=== PATIENT | female | born 1985 | race Caucasian/White ===

== ENCOUNTER → 2024-01-20 09:58 | Outpatient (BNVA) | payer OTHER, SELFPAY | PROVIDERS: Visit Provider Physician Assistant Surgical ==

== ENCOUNTER 2024-03-15 13:46 | Outpatient (AMB) | payer OTHER, SELFPAY ==
--- NOTE | 2024-03-15 13:24 | MHC.OFFVISWM ---
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 She heard about our program from the internet. Her goal is to lose weight and achieve a healthy lifestyle as well as to improve, if not resolve, obesity related medical conditions, including hld. She reports first being concerned about her weight over the last 4 years, highest weight to date was 230. Current weight is 221.6 pounds with a BMI of 35.2. She has tried multiple methods of weight loss including fad diets without permanent results. She lives with her and kids. 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 She wakes at:?7am, and goes to bed at?10 pm. Dinner is at 630 pm. Breakfast: premier protein RTD shake and sometime bagel w creamcheese AM snack: skip Lunch: skip or sandwich PM snack: sometimes fruit or toast latte Dinner: tacos or pasta or beef broccoli w rice After dinner: ice cream Other snacks: none Liquids: 24 oz seltzer, 48 oz coke zero daily, no juice, iced coffee w milk 20 oz Alcohol/marijuana/tobacco intake: 1-2 glasses wine 2 nights per week, no cannabis, no tobacco Exercise: none treadmill in home GERD score: 11 KATI score: 4 ESS score: 7 QOL score: 81 PFSH Surgical History No history of previous surgery Family History Mother Lung cancer Father No problems noted. Son No problems noted. Son No problems noted. Social History Alcohol intake: current Alcohol intake frequency: holidays/special occasions only Patient Tobacco Use Status: Never used Tobacco Telehealth Telehealth Telehealth Platform: Telephone Location of provider rendering services: practice address Location of patient: address on file Patient Identification confirmed using: Name, : Yes Telehealth method: voice only Patient verbally consented to treatment: Yes Patient verbally consented to billing insurance company: Yes Patient informed of any privacy concerns related to visit: Yes Minutes spent on Phone/Video with Pt.: 40 Assessment & Plan Assessment & Plan (1) Obesity (BMI 30-39.9): Code(s): E66.9 - Obesity, unspecified Category: Medical Plan: This is a?38 yo female who will start our SWL program to prepare for bariatric surgery.? Blood work, CXR, ECG, Abd US and UGI have been ordered. She is being scheduled for initial consultations. She will start SWL classes and watch the first three videos before her next appointment. 1. You have been given a paper with a link to our software kita ([employer]) to generate an individualized nutritional and exercise plan specific for you. Please send me a screenshot of the plans you will generate Meal to include lean meat (beef, fish, pork, turkey, chicken), or romanian yogurt, or egg whites, or beans with a salad with olive oil and fruits (berries, pears, apples, kiwi). Avoid salt, breads, potatoes, rice, pasta, desserts. 2. If you choose shakes, each shake would be drunk slowly, like coffee over a period of 2 hours. 3. If you choose bars, cut each bar in 4 pieces and eat each piece in 30min to make each bar last 2 hours. 4. I emphasized the importance of measuring accurately the food portion and measure it when serving the food on a plate 5. The meal portions include a specific number of forks of meat (protein) and salad. You always eat the meat portion but you can replace up to half of salad/vegetables portion with rice, potatoes or pasta, or a fruit ?if you like. The less you do it the better weight loss will be. 6. One full-size fork is what it can be scooped on the fork without falling aside and not what can be bit with the fork. Use regular forks like those you find in a typical restaurant. 7.? Please send me weight measurements from your body composition scale as soon as possible and then once a week. Always include your diet and exercise plan. The best time to weigh yourself is first thing in the morning after going to the bathroom. 8. The best choice for exercise would be treadmill at home 9.?Goal is to lose at least 1.5-2lbs per week, and about 10% before surgery, which is about 22 pounds 10. Please follow the diet plan exactly without any change. If you don't like something about the plan or you feel hungry you need to communicate with me so I can help you revise the plan. My cell phone number to communicate with me by text is [phone] Patient is morbidly obese and is not considered stable at this time.?I spent a total of 70 minutes reviewing/updating records, examining the patient and counseling the patient on weight management as detailed above. Orders: Orders Insulin Today E66.9 - Obesity, unspecified, E78.00 - Pure hypercholesterolemia, unspecified Hemoglobin A1c Today E66.9 - Obesity, unspecified, E78.00 - Pure hypercholesterolemia, unspecified Complete Blood Count Auto Diff Today E66.9 - Obesity, unspecified, E78.00 - Pure hypercholesterolemia, unspecified Lipid Panel Today E66.9 - Obesity, unspecified, E78.00 - Pure hypercholesterolemia, unspecified Comprehensive Met. Panel Today E66.9 - Obesity, unspecified, E78.00 - Pure hypercholesterolemia, unspecified Vitamin B12 and Folate Today E66.9 - Obesity, unspecified, E78.00 - Pure hypercholesterolemia, unspecified Zinc Today E66.9 - Obesity, unspecified, E78.00 - Pure hypercholesterolemia, unspecified C Reactive Protein Today E66.9 - Obesity, unspecified, E78.00 - Pure hypercholesterolemia, unspecified Vitamin A Today E66.9 - Obesity, unspecified, E78.00 - Pure hypercholesterolemia, unspecified US abdomen comp w elastography Today E66.9 - Obesity, unspecified, E78.00 - Pure hypercholesterolemia, unspecified FL upper GI w air Today E66.9 - Obesity, unspecified, E78.00 - Pure hypercholesterolemia, unspecified IRON PROFILE Today E66.9 - Obesity, unspecified, E78.00 - Pure hypercholesterolemia, unspecified Vitamin B1 Today E66.9 - Obesity, unspecified, E78.00 - Pure hypercholesterolemia, unspecified TSH reflex Free T4 Today E66.9 - Obesity, unspecified, E78.00 - Pure hypercholesterolemia, unspecified Ferritin Today E66.9 - Obesity, unspecified, E78.00 - Pure hypercholesterolemia, unspecified Vitamin D 25-OH Total Today E66.9 - Obesity, unspecified, E78.00 - Pure hypercholesterolemia, unspecified XR chest 2V Today E66.9 - Obesity, unspecified, E78.00 - Pure hypercholesterolemia, unspecified ECG 12 lead EKG Today E66.9 - Obesity, unspecified, E78.00 - Pure hypercholesterolemia, unspecified Referrals Behavioral Health Referral E66.9 - Obesity, unspecified, E78.00 - Pure hypercholesterolemia, unspecified
== END 2024-03-15 14:06 | disposition home or self-care (01) ==
LOC: HO.HBS 13:46
PROVIDERS: Visit Provider Physician Assistant Surgical
DX: E66.9 Obesity, unspecified (principal)
CPT/HCPCS: 99205

== ENCOUNTER → 2024-03-15 13:46 | Outpatient (BNVA) | payer OTHER, SELFPAY | PROVIDERS: Visit Provider Physician Assistant Surgical ==

== ENCOUNTER 2024-03-24 08:53 | Outpatient (REF) | payer OTHER, SELFPAY ==
--- NOTE | ~2024-03-24 | XR_ITS ---
EXAMINATION: XR CHEST CLINICAL INFORMATION: Obesity unspecified. COMPARISON: None available. TECHNIQUE: 2 views of the chest were obtained. FINDINGS: Dextroscoliosis of the thoracic spine with mild multilevel degenerative changes. Heart size is normal. No pleural effusion. There is no gross pneumothorax. No focal consolidation. XR/XR chest 2V IMPRESSION: No evidence of pneumonia.
--- NOTE | 2024-03-24 09:00 | ECG_ITS ---
Test Reason : cp Blood Pressure : / mmHG Vent. Rate : 079 BPM Atrial Rate : 079 BPM P-R Int : 154 ms QRS Dur : 092 ms QT Int : 388 ms P-R-T Axes : 068 -07 059 degrees QTc Int : 444 ms Normal sinus rhythm Normal ECG No previous ECGs available Referred By: Shawn Vega Electronically Signed By:Steve Jones
[2024-03-24 09:29] LABS: MANUAL DIFF FLAG NO
[2024-03-24 10:03] LABS: Basophils Absolute Auto 0.1 X10*3/uL (0.0-0.2); Basophils Percent Auto 0.7 % (0-2); Eosinophils Absolute Auto 0.1 X10*3/uL (0.0-0.4); Hematocrit 44.2 % (37.0-47.0); Hemoglobin 14.7 g/dl (12.0-16.0); Imm Gran Abs Auto 0.03 X10*3/uL (0.00-0.03); Imm Gran Pct Auto 0.4 % (0.0-0.4); Lymphocytes Absolute Auto 2.4 X10*3/uL (1.2-4.9); Lymphocytes Percent Auto 33.3 % (20-40); Mean Corpuscular HGB Conc 33.3 g/dl (31.0-35.0); Mean Corpuscular Hemoglobin 27.8 pg (27.0-33.0); Mean Corpuscular Volume 83.7 fL (80.0-98.0); Mean Platelet Volume 10.6 fL (9.4-12.3); Monocytes Absolute Auto 0.6 X10*3/uL (0.1-1.2); Monocytes Percent Auto 7.8 % (2-11); Neutrophils Percent Auto 55.8 % (45-73); Platelet Count 282 X10*3/uL (160-400); Red Blood Count 5.28 X10*6/uL (4.20-5.50); Red Cell Distribution Width 13.4 % (11.0-16.0); White Blood Count 7.1 X10*3/uL (4.8-10.8)
[2024-03-24 10:52] LABS: Estimated Average Glucose 100 mg/dL; Hemoglobin A1c % 5.1 % (<6.0)
[2024-03-24 10:55] LABS: Alanine Aminotransferase 64 U/L (0-31); Albumin Level 4.5 g/dL (3.5-5.0); Alkaline Phosphatase 68 U/L (39-117); Anion Gap 11 (12-20); Aspartate Amino Transferase 41 U/L (5-31); Bilirubin Total 0.5 mg/dL (0.0-1.0); Blood Urea Nitrogen 17 mg/dL (9-16); C Reactive Protein 0.46 mg/dL (< or = 0.50); Calcium 10.1 mg/dL (8.4-10.2); Carbon Dioxide 23 mmol/L (22-29); Chloride 108 mmol/L (96-108); Cholesterol 201 mg/dL (<200); Estimated Glomerular Filt Rate > 60; Glucose Random 78 mg/dL (60-115); HDL Cholesterol 46 mg/dL (>40); Iron 82 mcg/dL (30-160); LDL Cholesterol Calculated 129 mg/dL (<100); Percent Iron Saturation 27 % (15-50); Potassium 4.1 mmol/L (3.3-5.1); Sodium 138 mmol/L (135-145); Total Iron Binding Capacity 301 mcg/dL (228-428); Total Protein 7.9 g/dL (6.5-8.0); Triglycerides 132 mg/dL (<150); Unsaturated Iron Binding 219 ug/dL
[2024-03-24 10:59] LABS: Ferritin 159 ng/mL (10-250); Insulin 12 uU/mL (2-29); TSH reflex Free T4 7.78 uIU/mL (0.32-4.0); Vitamin D 25-OH Total 24.5 ng/mL (>30)
[2024-03-24 11:35] LABS: Folate 13.4 ng/mL (> or = 4.0); Vitamin B12 724 pg/mL (200-900)
[2024-03-24 12:11] LABS: Free T4 (Free Thyroxine) 1.13 ng/dL (0.71-1.85)
[2024-03-28 00:09] LABS: Zinc 86 mcg/dL (60-130)
[2024-03-29 22:13] LABS: Vitamin A 44 mcg/dL (38-98)
[2024-03-31 13:28] LABS: Vitamin B1 13 nmol/L (8-30)
== END 2024-03-24 08:54 | disposition home or self-care (01) ==
LOC: HO.XRAY 08:53
PROVIDERS: PCP Family Medicine; Visit Provider Physician Assistant Surgical
DX: E66.9 Obesity, unspecified (principal); E78.00 Pure hypercholesterolemia, unspecified; Z13.1 Encounter for screening for diabetes mellitus
CPT/HCPCS: 36415; 71046; 80053; 80061; 82306; 82607; 82728; 82746; 83036; 83525; 83540; 84425; 84439; 84443; 84590; 84630; 85025; 86140; 93005

== ENCOUNTER → 2024-03-24 09:00 | Outpatient (BNV) | payer OTHER, SELFPAY | PROVIDERS: PCP Family Medicine; Visit Provider Internal Medicine Cardiovascular Disease | DX: R07.9 Chest pain, unspecified (principal) | CPT/HCPCS: 93010 ==

== ENCOUNTER 2024-04-05 09:03 | Outpatient (REF) | payer OTHER, SELFPAY ==
--- NOTE | ~2024-04-05 | US_ITS ---
EXAMINATION: US COMPLETE ABDOMEN WITH LIVER ELASTOGRAPHY CLINICAL INFORMATION: Obesity. COMPARISON: None available. TECHNIQUE: Real-time imaging of the abdominal viscera. Noninvasive ultrasound liver fibrosis assessment is performed using Nicolas ElastPQ point quantification shear wave elastography (pSWE) with a C5-2 MHz transducer. Multiple elastography samples are obtained. FINDINGS: PANCREAS: Normal. The visualized pancreatic head and body are normal in appearance. The remainder of the pancreas is obscured from visualization by the overlying bowel gas. ABDOMINAL AORTA: The proximal, middle, and distal aortic segments are normal in caliber. INFERIOR VENA CAVA: Visualized portions are normal. LIVER: The liver demonstrates normal size, contour and increased echogenicity. No focal lesion or intrahepatic biliary duct dilatation. The right lobe measures 15.2 cm in length. The left lobe measures 7.7 cm in length. Portal flow is towards the liver (hepatopetal). Shear wave liver elastography median stiffness is 1.27 m/s (reference: normal median stiffness is 1.3 m/s or less). IQR/median stiffness to assess sampling precision is 0.04 (reference: good quality data set is IQR/median stiffness of 0.15 or less). GALLBLADDER: Normal. The gallbladder is physiologically distended without evidence of stones, sludge, polyps, wall thickening or pericholecystic fluid. COMMON BILE DUCT: Normal in caliber measuring 0.5 cm in diameter. RIGHT KIDNEY: There is pelviectasis, without noy hydronephrosis. No renal calculi or focal parenchymal lesions. The kidney measures 11.9 cm in maximum dimension. LEFT KIDNEY: Normal. No hydronephrosis. No renal calculi or focal parenchymal lesions. The kidney measures 11.8 cm in maximum dimension. SPLEEN: Normal. The spleen measures 11.6 cm in maximum dimension. FREE FLUID: None. US/US abdomen comp w elastography IMPRESSION: 1. There is generalized increase in hepatic echotexture, consistent with fatty infiltration or hepatocellular disease. Please correlate clinically. No focal hepatic mass or intrahepatic biliary dilatation is seen. 2. Liver elastography: Measurements are consistent with a high probability of normal liver stiffness. REFERENCE: Society of Radiologists in Ultrasound Liver Stiffness Thresholds (2020): LIVER STIFFNESS THRESHOLDS: *Liver Stiffness equal or less than 1.3 m/s: High probability of being normal. *Liver Stiffness less than 1.7 m/s: In the absence of other known clinical signs, rules out compensated advanced chronic liver disease. *Liver Stiffness 1.7-2.1 m/s: Suggestive of compensated advanced chronic liver disease but need further test for confirmation. *Liver Stiffness over 2.1 m/s: Rules in compensated advanced chronic liver disease. *Liver Stiffness over 2.4 m/s: Suggestive of clinically significant portal hypertension. QUALITY OF DATA SET: *IQR/Median value equal or less than 0.15 implies a quality data set. *IQR/Median value over 0.15 implies a poor quality data set. SIGNIFICANT CHANGE FROM PRIOR EXAM: Significant change if liver stiffness measurement is 10% or greater from prior exam. OTHER CONSIDERATIONS: The stage of liver fibrosis may be overestimated in the setting of acute hepatitis, liver inflammation, elevated liver function tests, hepatic vascular congestion, obstructive cholestasis, non-fasting state, and infiltrative diseases such as amyloidosis and lymphoma. In some patients with NAFLD, the liver stiffness thresholds for compensated advanced chronic liver disease may be lower. In causes other than viral hepatitis and NAFLD, liver stiffness thresholds are not well established. Electronically signed by: Constantin Corona MD 04/26/2024 08:01 PM EDT
== END 2024-04-05 09:04 | disposition home or self-care (01) ==
LOC: HO.US 09:03
PROVIDERS: Visit Provider Physician Assistant Surgical
DX: E66.9 Obesity, unspecified (principal); E78.00 Pure hypercholesterolemia, unspecified
CPT/HCPCS: 76700; 76981

== ENCOUNTER 2024-04-17 14:01 | Outpatient (AMB) | payer OTHER, SELFPAY ==
--- NOTE | 2024-04-17 09:10 | MHC.OFFVISWM ---
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 She was initially seen in the Surgical weight loss program on 03/15/2024 with a weight of 221.6 lb and a BMI of 35.2. Weight today is 208.8 lb with a BMI of 33.1. This corresponds to a weight loss of 12.8 lb or 5.7% total body weight loss. She is following the meal plan well Meal plan: Premier protein rtd 1/2 at 9-11, 1/2 at 11-1, Perdue protein bar 1/2 bar 3-4 (20 gm protein in whole bar) dinner 7 forks protein and 7 forks veg 1/2 bar 9 pm Drinking 60-80 oz water Exercise plan: home treadmill 3 days per week, 150-200 fahad yoga, 1 day per week 150 fahad, PFSH Surgical History No history of previous surgery Family History Mother Lung cancer Father No problems noted. Son No problems noted. Son No problems noted. Social History Alcohol intake: current Alcohol intake frequency: holidays/special occasions only Patient Tobacco Use Status: Never used Tobacco Physical Exam Vital Signs: BMI result Body Mass Index 33.1 Telehealth Telehealth Telehealth Platform: Telephone Location of provider rendering services: practice address Location of patient: address on file Patient Identification confirmed using: Name, : Yes Telehealth method: voice only Patient verbally consented to treatment: Yes Patient verbally consented to billing insurance company: Yes Patient informed of any privacy concerns related to visit: Yes Minutes spent on Phone/Video with Pt.: 15 Assessment & Plan Assessment & Plan (1) Obesity (BMI 30-39.9): Code(s): E66.9 - Obesity, unspecified Category: Medical Plan: Patient is doing well. She has lost 12.8 lb or 5.7% total body weight loss in the month since she initiated the program. She is engaged in the [employer] kita and following the meal plan. We discussed strategy to improve her exercise plan including consistency. She does have a treadmill at home and I have suggested that she wake up at 06:00 so she may use the treadmill for 45 minutes to an hour with a goal of burning approximately 300 calories daily. She then we will have finished her exercise and time to wake up her children for school at approximately 07:30. In the meantime, we will transfer her to Dr. Coombs for continued preoperative care. She has been encouraged to continue to send weight is weekly and text with any questions or concerns.
[2024-04-17 09:11] VITALS: BMI 33.1
== END 2024-04-17 14:02 | disposition home or self-care (01) ==
LOC: HO.HBS 14:02
PROVIDERS: PCP Family Medicine; Visit Provider Physician Assistant Surgical
DX: E66.9 Obesity, unspecified (principal)
CPT/HCPCS: 99213

== ENCOUNTER → 2024-04-17 14:01 | Outpatient (BNVA) | payer OTHER, SELFPAY | PROVIDERS: PCP Family Medicine; Visit Provider Physician Assistant Surgical | DX: E66.9 Obesity, unspecified (principal) ==

== ENCOUNTER 2024-04-26 09:11 | Outpatient (AMB) | payer OTHER, SELFPAY ==
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
== END 2024-04-26 10:10 | disposition home or self-care (01) ==
LOC: HO.HBST 09:11
PROVIDERS: PCP Family Medicine; Visit Provider Counselor Mental Health
DX: F33.9 Major depressive disorder, recurrent, unspecified (principal)
CPT/HCPCS: 90791

== ENCOUNTER → 2024-04-26 09:11 | Outpatient (BNVA) | payer OTHER, SELFPAY | PROVIDERS: PCP Family Medicine; Visit Provider Counselor Mental Health ==

== ENCOUNTER 2024-05-02 10:02 | Day surgery (SDC) | payer OTHER, SELFPAY ==
[2024-05-02 10:57] VITALS: BMI 31.7
[2024-05-02 11:04] VITALS: BMI 31.7
[2024-05-02 11:04] LABS: UPreg QC Valid YES; Urine Pregnancy NEGATIVE (NEGATIVE)
[2024-05-02 11:06] VITALS: BP 112/72; PULSE 73; RESP 16; TEMP 36.7; O2SAT 95
--- NOTE | 2024-05-02 11:10 | PM.OP ---
Brief Operative Note Date of Service: 05/02/24 Pre-op diagnosis: GERD Post-op diagnosis: same Procedure: PROCEDURE DATE: 05/02/2024 PREOPERATIVE DIAGNOSIS: GERD POSTOPERATIVE DIAGNOSIS: ?Same as above. 1) small hiatal hernia, 2) esophagitis, 3) distal gastritis PROCEDURE: Ouyfyzjm-brtjhk-adevmahshvaw with biopsies Surgeon: ?Derek Coombs M.D.. Ph.D. Cloth Cutting Machine Operator: None ? Anesthesia: IV sedation Estimated blood loss: ?Minimal FINDINGS AND PROCEDURE: ? OPERATIVE INDICATIONS: ?The patient is a 39 year old female known to me who is interested in bariatric surgery. The patient has severe GERD. Based on this information I recommended an upper endoscopy to evaluate the patient's symptoms. Risks and complications of the surgery were discussed with the patient in advance particularly the possibility of perforation or bleeding that may require surgical intervention. The patient understood the risks and was in agreement with the plan. ? PROCEDURE: After informed consent was obtained by the patient, the patient was ?transferred to the Operating Room and was placed in the supine position.? After successful induction of IV sedation, a mouth block was inserted and the patient was placed in the left lateral decubitus position. An upper endoscopy was performed next, the oropharynx and esophagus appeared within the normal limits. There was a small 2cm hiatal hernia. The z-line was irregular with tongues of gastric mucosa protruding into the esophagus. Two biopsies were obtained from the distal esophagus 2-3 cm proximal to the GE junction and two additional biopsies from the GE junction. The stomach was entered and it appeared to be of normal size. There was mild gastritis at the antrum. There was no stricture or ulcer. A biopsy was obtained from the gastric fundus and the antrum. No significant bleeding was noted from any of the biopsy sites. Retroflexion of the scope confirmed the presence of the small diaphragmatic hernia. The scope was then advanced into the duodenum which appeared to be normal as well. At that point the duodenum ?and the stomach were decompressed and the scope was withdrawn from the patient's mouth. The patient extubated and was transferred in stable condition to the Recovery Room for further care. I was present and performed all steps of the procedure. There were no residents to assist with this case. Derek Coombs M.D., Ph.D. Surgeon: Abelardo Coombs MD Anesthesia: MAC Was an Cloth Cutting Machine Operator used for this Procedure?: No Estimated blood loss (mL): 0 IV fluids (mL): 400 Urine output (mL): 0 (No Kwon to record output) Pathology: other (1) antrum x1, 2) fundus x1, 3) GE junction x2, 4) distal esophagus x2) Condition: stable Disposition: PACU
--- NOTE | 2024-05-02 11:11 | MHC.SHP ---
Pre-Procedural Eval Section A - 24 Hr Update-Section A only Date of Service: 05/02/24 The patient is an INPATIENT: No The patient has been examined within 24 hours of the surgical procedure. The History & Physical has been completed within 30 days and I have reviewed it.: Yes Section B - Complete if H&P > 30 days Chief Complaint: Morbid (severe) obesity due to excess calories Details of Present Illness: GERD Relevant Family History (Specify if Yes): No Relevant Social History: None Present Medications: None Medical History: No relevant PMH History of Previous Operations: No relevant previous surgery Allergies: Allergies Allergy/AdvReac Type Severity Reaction Status Date / Time No Known Allergies Allergy Verified 01/20/24 10:29 Review of Systems Sugical H&P ROS: Negative: Constitution, Cardiovascular, Respiratory, Neurological, Psychiatric, Hem-Onc, Allergic/Immunologic, Gastrointestinal, Genitourinary, Musculoskeletal, Integumentary, Endocrine and Eyes/Ears/Nose/Throat Exam Surgical H&P Exam: Normal: HEENT, Normal: Heart, Normal: Lungs, Normal: Extremities, Normal: Abdomen, Normal: Skin and Normal: Neurological Plan Diagnosis/Plan: Unchanged (EGD to assess etiology of GERD. Risks of bleeding and perforation were discussed with the patient and she is in agreement with the plan.) I have reviewed the history and physical and performed a pertinent physical examination on my patient. No changes have occurred unless specified. Time Spent With Patient Time: Total time managing care of this patient today ____ minutes.
--- NOTE | 2024-05-02 11:15 | P.CONAN_ITS ---
Documented by User: Edelmira Lyn NP 04/28/24 14:19 HPI - Anesthesia Eval Consult details Narrative: 38yo F for Upper Endoscopy [facility] Active Problems Active Problems: All Active Problems Hypothyroid (Acute) Hypercholesterolemia (Acute) Obesity (BMI 30-39.9) (Acute) Past Medical History Medical History (Updated 05/02/24 @ 11:01 by Lily Spencer RN) Tuberculosis Hypothyroid Asthma Family History Family History Mother Lung cancer Father No problems noted. Son No problems noted. Son No problems noted. Surgical History Surgical History (Updated 05/02/24 @ 11:01 by Lily Spencer RN) H/O wisdom tooth extraction No history of previous surgery Social History Social History Alcohol intake: current Alcohol intake frequency: holidays/special occasions only Patient Tobacco Use Status: Never used Tobacco Use of substances other than those prescribed or required for medical reasons: No Are you DNR?: No Advance Directives: No Advance Directives Information Provided: Yes Advance Directives on File: No Meds Allergies Allergy/AdvReac Type Severity Reaction Status Date / Time No Known Allergies Allergy Verified 01/20/24 10:29 Home Medications ?Medication ?Instructions ?Recorded ?Confirmed ?Last Taken ?Type levothyroxine 200 mcg capsule 200 mcg PO DAILY 01/20/24 04/17/24 05/02/24 History probiotic PO 01/20/24 04/17/24 Unknown History sertraline 100 mg tablet (Zoloft) 100 mg PO DAILY 01/20/24 04/17/24 Unknown History Assessment and Plan Assessment Anesthesia Assessment: Chart Reviewed Documented by User: Radha Iniguez DO 05/02/24 11:23 [facility] Past Medical History Medical History (Updated 05/02/24 @ 11:01 by Lily Spencer RN) Tuberculosis Hypothyroid Asthma Family History Family History Mother Lung cancer Father No problems noted. Son No problems noted. Son No problems noted. Family history of problems with anesthesia: No Surgical History Surgical History (Updated 05/02/24 @ 11:01 by Lily Spencer RN) H/O wisdom tooth extraction No history of previous surgery History of Problems with Anesthesia: No Social History Social History Alcohol intake: current Alcohol intake frequency: holidays/special occasions only Patient Tobacco Use Status: Never used Tobacco Use of substances other than those prescribed or required for medical reasons: No Are you DNR?: No Advance Directives: No Advance Directives Information Provided: Yes Advance Directives on File: No Meds Allergies Allergy/AdvReac Type Severity Reaction Status Date / Time No Known Allergies Allergy Verified 01/20/24 10:29 Home Medications ?Medication ?Instructions ?Recorded ?Confirmed ?Last Taken ?Type levothyroxine 200 mcg capsule 200 mcg PO DAILY 01/20/24 04/17/24 05/02/24 History probiotic PO 01/20/24 04/17/24 Unknown History sertraline 100 mg tablet (Zoloft) 100 mg PO DAILY 01/20/24 04/17/24 Unknown History Exam Exam Date and Time: 05/02/24 1115 Height,Weight and Vital Signs: Height 5 ft 7 in Weight 91.796 kg Vital Signs Temperature 98.1 F 05/02/24 11:06 Pulse Rate 73 05/02/24 11:06 Respiratory Rate 16 05/02/24 11:06 Blood Pressure 112/72 05/02/24 11:06 Pulse Oximetry 95 05/02/24 11:06 Oxygen Delivery Method Room Air 05/02/24 11:06 Temperature 98.1 F 05/02/24 11:06 Pulse Rate 73 05/02/24 11:06 Respiratory Rate 16 05/02/24 11:06 Blood Pressure 112/72 05/02/24 11:06 Pulse Oximetry 95 05/02/24 11:06 Oxygen Delivery Method Room Air 05/02/24 11:06 Airway Mallampati Class: II TM Dist: >3cm Neck ROM: Full Loose/Missing/Broken Teeth: No (patient denies any loose or broken teeth) Heart: S1S2 Lungs: CTAB Assessment and Plan Assessment Anesthesia Assessment: Anesthesia Plan Discussed and Chart Reviewed Final Anesthetic Review Family History of Problems with Anesthesia: No History of Problems with Anesthesia: No NPO: Yes ASA Class: II Final Preanesthetic Review: No Changes in Pt Med Stat, Meds/Allgs Chart Reviewed, Consent Obtained/Reviewed and Anes Risks/Benef Reviewed Patient Risk: Low Procedure Risk: Low Anesthetic Plan Anesthetic Plan: MAC: and Agree w/ Assess. and Plan Disposition: Standard PACU
[2024-05-02] MEDS: Lactated Ringers 1,000 ML 80 ML IVCONT (11:23)
[2024-05-02 12:18] VITALS: BP 102/60; PULSE 93; RESP 16; TEMP 36.7; O2SAT 94
[2024-05-02 12:37] VITALS: BP 101/76; PULSE 85; RESP 17; TEMP 36.7; O2SAT 96
== END 2024-05-02 13:03 | disposition home or self-care (01) ==
PROVIDERS: Nurse Practitioner; PCP Family Medicine; Visit Provider Surgery
PROC: 0DJ08ZZ Inspection of Upper Intestinal Tract, Via Natural or Artificial Opening Endoscopic (ICD-10-PCS; CPT 43235; principal; 2024-05-02 12:10)
DX: K21.9 Gastro-esophageal reflux disease without esophagitis (principal); E66.01 Morbid (severe) obesity due to excess calories; Z68.35 Body mass index [BMI] 35.0-35.9, adult; K29.50 Unspecified chronic gastritis without bleeding; K20.80 Other esophagitis without bleeding; K22.89 Other specified disease of esophagus; K44.9 Diaphragmatic hernia without obstruction or gangrene; E78.00 Pure hypercholesterolemia, unspecified
CPT/HCPCS: 43239; 81025; 88305; 88313; 88342; J1100; J1596; J2250; J2704

== ENCOUNTER → 2024-05-02 10:02 | Outpatient (BNV) | payer OTHER, SELFPAY | PROVIDERS: PCP Family Medicine; Visit Provider Surgery | DX: K44.9 Diaphragmatic hernia without obstruction or gangrene (principal) | CPT/HCPCS: 43239 ==

== ENCOUNTER → 2024-05-10 08:11 | Outpatient (BNVA) | payer OTHER, SELFPAY | PROVIDERS: PCP Family Medicine; Visit Provider Counselor Mental Health ==

== ENCOUNTER → 2024-05-10 08:11 | Outpatient (AMB) | payer OTHER, SELFPAY ==
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
== END ==
LOC: HO.HBST 08:12
PROVIDERS: PCP Family Medicine; Visit Provider Counselor Mental Health
DX: F33.9 Major depressive disorder, recurrent, unspecified (principal)
CPT/HCPCS: 90837

== ENCOUNTER 2024-05-10 13:59 | Outpatient (AMB) | payer OTHER, SELFPAY ==
[2024-05-10 14:01] VITALS: BP 112/86; PULSE 96; BMI 31.7
--- NOTE | 2024-05-10 14:01 | MHC.OFFVIS ---
Vital Signs 05/10/24 14:01 Height 5 ft 7 in Weight 202 lb 9.677 oz BMI 31.7 BP 112/86 Blood Pressure Location Lt brachial Position Sitting Pulse 96 Pulse Source Pulse Oximeter Intake Visit Reasons: Hypothyroidism-confirmed Intake Note: Patient presents today for Hypothyroidism office visit. Party Plan Sales Agent Required: No Accompanied by: Self / Same As Patient Allergies No Known Allergies Allergy (Verified 01/20/24 10:29) Medication List - Last Reconciled 05/10/24 by Fatuma Velazco MD cholecalciferol (vitamin D3) 125 mcg PO DAILY 90 days levothyroxine 200 mcg PO DAILY [probiotic PO] sertraline (Zoloft) 100 mg PO DAILY HPI Comments Details: 39-year-old female coming in today for initial evaluation of hypothyroidism. Congenital hypothyroidism diagnosed when she was born. PCP has been managing it. She thought to establish care with us due to some recent fluctuations in blood work and planning to get gastric sleeve surgery in sometime around July 2024. Most recent blood work from March 2024 showed TSH of 7.78 which is elevated and free T4 normal at 1.13. Aicha on levothyroxine 200 mcg Wednesday to Wednesday, now takes it 7 30 AM , then breakfast at 9 AM, but has become particular about this end of February. Prior to that she also thinks she missed some doses. 2-3 times a week maybe missed the pill. Patient currently denies heat or cold intolerance, diarrhea or constipation, hair loss, palpitation, anxiety, weight changes, mood changes, low energy, changes in appearance of eyes or vision changes, tremors, increased diaphoresis or dry skin. ? Patient denies any difficulty swallowing, pain on swallowing or voice changes or difficulty breathing. Patient denies any history of childhood neck radiation. Denies having ever used lithium, amiodarone or biotin supplements. Patient denies any family history of thyroid cancer or thyroid disease. 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 Pulmonary: No SOB GI:No abdominal pain, no nausea or vomiting, no anorexia, no blood in stool : no burning micturition, dysuria or increase in urinary frequency Physical exam General: sitting comfortably in no acute distress HEENT: normocephalic/atraumatic, moist oral mucosa Neck: supple, symmetrical , no dorsocervical or supraclavicular fat pads Cardiac: normal heart sounds Pulm: normal breath sounds B/L, no added breath sounds Abd: not distended, no tenderness Extremities: no edema, no signs of myxedema PFSH Medical History (Updated 05/10/24 @ 14:29 by Fatuma Velazco MD) Tuberculosis Hypothyroid Asthma Surgical History (Updated 05/02/24 @ 11:01 by Lily Spencer RN) H/O wisdom tooth extraction No history of previous surgery Family History Mother Lung cancer Father No problems noted. Son No problems noted. Son No problems noted. Social History Alcohol intake: current Alcohol intake frequency: holidays/special occasions only Patient Tobacco Use Status: Never used Tobacco Physical Exam Vital Signs: Last Vital Signs Pulse 96 05/10/24 14:01 BP 112/86 05/10/24 14:01 BMI result Body Mass Index 31.7 Results Reviewed Results Reviewed: Laboratory Tests 03/24/24 09:26 25-OH Vitamin D Total 24.5 L TSH 7.78 H Free T4 1.13 Assessment & Plan Assessment & Plan (1) Hypothyroid: Code(s): E03.9 - Hypothyroidism, unspecified Category: Medical Qualifiers: Hypothyroidism type: congenital without goiter Qualified Code(s): E03.1 - Congenital hypothyroidism without goiter Plan: Patient with history of congenital hypothyroidism who has been on levothyroxine 200 mcg daily for many years. Most recently blood work was done in March 2024 when TSH was noted to be elevated at 7.7, with free T4 normal at 1.13. She does endorse missing some doses a few times a week prior to March as well as times taking it with food. She has been more particular about her regimen since beginning of March. She currently does not have any symptoms of hypothyroidism or hyperthyroidism. She has been working with weight management program planning for gastric sleeve surgery in July 2024. I explained to the patient that as she continues to lose weight she might actually experience she we need a decreased dose, and once she gets her procedure, there might be some absorption issues possibly requiring increased dose. At this time since her elevated TSH is explained by her missing some doses and not taking it appropriately, we will continue her on the same dose now that she is taking it appropriately. We will plan to repeat her labs in another 4 weeks. Plan: -continue levothyroxine 200 mcg daily -ordered TSH, free T4 to be done in 4 weeks -follow up in 3 months -counseled her about symptoms of hypothyroidism and hyperthyroidism and to contact our office if those happen for getting labs done sooner Plan I spent 45 minutes in reviewing the record, seeing the patient and documenting in the medical record. Orders: Orders Thyroid Stimulating Hormone 4 Weeks E03.9 - Hypothyroidism, unspecified Free T4 (Free Thyroxine) 4 Weeks E03.9 - Hypothyroidism, unspecified Patient Instructions: Labs in 4 weeks Continue taking levothyroxine 200 mcg daily first thing in the monring, empty stomach, wait an hour before eating or drinking coffee Do not take with other medications Follow up in 3 months Coding Level of Care Code New Pt Level 4 (92136) Diagnoses Congenital hypothyroidism without goiter E03.1 Hypothyroidism type: congenital without goiter Time Spent (min) 45
== END 2024-05-10 14:28 | disposition home or self-care (01) ==
PROVIDERS: PCP Family Medicine; Visit Provider Student in an Organized Health Care Education/Training Program
DX: E03.1 Congenital hypothyroidism without goiter (principal)
CPT/HCPCS: 99204

== ENCOUNTER 2024-05-15 08:06 | Outpatient (AMB) | payer OTHER, SELFPAY ==
--- NOTE | 2024-05-15 10:33 | A.OFFVIS_ITS ---
VS Expanded 05/15/24 10:52 Height 5 ft 7 in Weight 199 lb 1 oz BMI 31.2 Body Fat % 38.2 Body Fat Mass 76 Fat Free Mass 123 Visceral Fat Rating 10 Body Water % 45.2 Body Water Mass 89.9 Basal Metabolic Rate/Score 1,575 Intake Visit Reasons: TV Consult / Transfer Shawn Allergies No Known Allergies Allergy (Verified 05/15/24 10:33) Medication List - Last Reconciled 05/15/24 by Abelardo Coombs MD albuterol sulfate 90 mcg/actuation 2 puffs inhalation Q6H PRN cholecalciferol (vitamin D3) 125 mcg PO DAILY 90 days levothyroxine 200 mcg PO DAILY [probiotic PO] sertraline (Zoloft) 100 mg PO DAILY HPI HPI TV Consult / Transfer Shawn: Details: Start time: 10.15am, End time: 11am ?I spent 40 minutes speaking with the patient on the phone plus an additional 5 minutes reviewing and updating records for a total of 45 minutes HPI Comments Details: Overall weight loss: 22.5lbs, or 10.15% TBWL Is using the [employer] kita with excellent results: Is doing 2 half bottles of premade Premier shake, one Pure protein bar splin in half and a meal (7 forks of protein and 7 forks of salad or vegetables) Exercise: treadmill for 285 fahad daily (speed 3mph and incline 0-6) PFSH Medical History (Updated 05/15/24 @ 10:36 by Abelardo Coombs MD) Anxiety Depression Tuberculosis Hypothyroid Asthma Surgical History H/O wisdom tooth extraction No history of previous surgery Family History Mother Lung cancer Father No problems noted. Son No problems noted. Son No problems noted. Social History Alcohol intake: current Alcohol intake frequency: holidays/special occasions only Patient Tobacco Use Status: Never used Tobacco Telehealth Telehealth Telehealth Platform: Telephone Location of provider rendering services: practice address Location of patient: address on file Patient Identification confirmed using: Name, : Yes Telehealth method: voice only Patient verbally consented to treatment: Yes Patient verbally consented to billing insurance company: Yes Patient informed of any privacy concerns related to visit: Yes Minutes spent on Phone/Video with Pt.: 45 Assessment & Plan Assessment & Plan (1) Obesity (BMI 30-39.9): Code(s): E66.9 - Obesity, unspecified Category: Medical Plan: 1. Plan for lap sleeve gastrectomy including upper GI endoscopy. All tests has been completed and reviewed and the patient is cleared for the surgery. ?If diaphragmatic or ventral hernias are present at time of surgery, these will be repaired laparoscopically as well. Risks and complications were discussed in detail including possible conversion to an open procedure, anastomotic leak, bleeding requiring transfusion, small bowel obstruction, , DVT and pulmonary embolism, cardiac, or pulmonary complications, as detention complications such as anastomotic ulcer, insufficient weight loss and vitamin deficiencies. I emphasized the importance of close follow-up, adherence to instructions and good communication. So far she has proven to be an excellent communicator and very compliant with all our directions accomplishing a great weight loss. I believe that she is an excellent candidate and she is ready. 2. The patient participated in a structured preoperative lifestyle intervention program supervised by a physician the 2 months preceding the surgical procedure. The lifestyle intervention included a structured nutritional plan with a specific daily protein intake goal, an exercise plan with a 2000 calorie burn weekly goal, weekly behavior modification guidance and completion of eight 1- hour online nutritional classes and passing successfully the corresponding quizzes. Adherence to preoperative care plan was demonstrated by completing an extensive preoperative work-up. Program participation was demonstrated by completing 4 visits with our medical team and by sharing weekly weight measurements weekly for 2 consecutive months via an approved body composition scale. Compliance to the lifestyle intervention was demonstrated by achieving a 22.5lbs weight-loss or 10.15% total body weight loss (TBWL). No medications were used to achieve this weight loss. In our published experience an over 7% preoperative TBWL, achieved by meeting the diet and exercise goals of our program improves surgical outcomes, reduces the potential for surgical complications, and predicts a statistically significant higher weight loss up to 6 years postoperatively. 3. Continue present kita's plan of 2 half bottles of premade Premier shake, one Pure protein bar splin in half and a meal (7 forks of protein and 7 forks of salad or vegetables) 4. Exercise: continue treadmill for 285 fahad daily (speed 3mph and incline 0-6). Consider increasing the incline periodically 5. Send me weight measurements weekly on Sundays
[2024-05-15 10:52] VITALS: BMI 31.2
== END 2024-05-15 11:00 | disposition home or self-care (01) ==
LOC: HO.HBS 08:06
PROVIDERS: PCP Family Medicine; Visit Provider Surgery
DX: E66.9 Obesity, unspecified (principal); Z68.31 Body mass index [BMI] 31.0-31.9, adult
CPT/HCPCS: 99215

== ENCOUNTER → 2024-05-15 08:06 | Outpatient (BNVA) | payer OTHER, SELFPAY | PROVIDERS: PCP Family Medicine; Visit Provider Surgery ==

== ENCOUNTER 2024-05-25 08:27 | Outpatient (REF) | payer OTHER, SELFPAY ==
--- NOTE | ~2024-05-25 | FL_ITS ---
EXAMINATION: XR FLUOROSCOPY UPPER GI WITH AIR CLINICAL INFORMATION: Obesity, unspecified. Patient also complaining of mild reflux symptoms, chronic. History of small hiatus hernia. COMPARISON: None relevant. TECHNIQUE: Fluoroscopic air contrast upper GI examination was performed utilizing standard techniques with thin and thick barium and effervescent granules. Numerous spot images were obtained. Several fluoroscopic image hold cine sequences were also obtained. FINDINGS: Lateral cine images of the oropharynx and hypopharynx demonstrate normal swallow mechanism with normal epiglottic inversion and soft palate elevation. No tracheal penetration, glottic or subglottic aspiration identified. No nasopharyngeal reflux present. Hypopharyngeal structures appear normal without evidence of mass or diverticulum. There was no significant cricopharyngeal achalasia. Dual and single contrast images of the esophagus demonstrate normal caliber and contour. Subtle granular pattern of the distal one third of the esophagus mucosa, suggestive of reflux esophagitis. No evidence of stricture, mass, or gross ulcerations identified. Esophageal peristalsis was normal. There is a small type I hiatus hernia. There is a wide open Schatzki's ring at the GE junction. No functional obstruction. There was prominent gastroesophageal reflux noted during the exam to the level of the thoracic inlet. Dual contrast and single contrast images of the stomach demonstrated normal contour and mucosal pattern without evidence of mass, ulceration, or other abnormality. Contrast freely passed into the gastric antrum and duodenal bulb without delay. Single and air-contrast images of the duodenal bulb demonstrate no abnormality. The duodenal sweep has a normal appearance, course, and mucosal fold appearance. The imaged proximal jejunum has a normal fold pattern and caliber. FLUOROSCOPY TIME: 3 minutes, 44 seconds Number of Spot Images: 11 Number of cines obtained: 15 DOSE AREA PRODUCT: 3613 uGy-m2 (microgray-meter squared) FL/FL upper GI w air IMPRESSION: 1. Small type I hiatus hernia . 2. Granular pattern of the distal esophageal mucosa, subtle, consistent with mild reflux esophagitis. 3. Wide open Schatzki's ring at the GE junction with no functional obstruction. 4. Gastroesophageal reflux noted to the level of the thoracic inlet. 5. Normal-appearing stomach, duodenal bulb, duodenum, and proximal small bowel. Electronically signed by: Pelon Robertson MD 05/25/2024 10:57 AM EDT
== END 2024-05-25 08:28 | disposition home or self-care (01) ==
LOC: HO.XRAY 08:27
PROVIDERS: PCP Family Medicine; Visit Provider Physician Assistant Surgical
DX: E66.9 Obesity, unspecified (principal); E78.00 Pure hypercholesterolemia, unspecified
CPT/HCPCS: 74246

== ENCOUNTER → 2024-05-25 08:28 | Outpatient (BNV) | payer OTHER, SELFPAY | PROVIDERS: PCP Family Medicine; Visit Provider Radiology Diagnostic Radiology | DX: K21.9 Gastro-esophageal reflux disease without esophagitis (principal); E66.9 Obesity, unspecified | CPT/HCPCS: 74246 ==

== ENCOUNTER 2024-06-07 09:13 | Outpatient (REF) | payer OTHER, SELFPAY ==
[2024-06-07 10:41] LABS: Free T4 (Free Thyroxine) 1.55 ng/dL (0.71-1.85)
== END 2024-06-07 09:14 | disposition home or self-care (01) ==
LOC: HO.LAB 09:13
PROVIDERS: Visit Provider Student in an Organized Health Care Education/Training Program
DX: E03.9 Hypothyroidism, unspecified (principal)
CPT/HCPCS: 36415; 84439; 84443

== ENCOUNTER → 2024-06-15 07:59 | Outpatient (REF) | payer OTHER, SELFPAY | LOC: HO.SL 07:59 | PROVIDERS: PCP Family Medicine; Visit Provider Physician Assistant Surgical | DX: R06.83 Snoring (principal) | CPT/HCPCS: 95806 ==

== ENCOUNTER → 2024-06-15 08:43 | Outpatient (BNV) | payer OTHER, SELFPAY | PROVIDERS: PCP Family Medicine; Visit Provider Internal Medicine | DX: R06.83 Snoring (principal) | CPT/HCPCS: 95806 ==

== ENCOUNTER 2024-06-19 07:57 | Outpatient (AMB) | payer OTHER, SELFPAY ==
--- NOTE | 2024-06-19 11:51 | A.OFFVIS_ITS ---
VS Expanded 06/19/24 11:59 Height 5 ft 7 in Weight 192 lb 2 oz BMI 30.1 Body Fat % 37.4 Body Fat Mass 71.8 Fat Free Mass 120.3 Visceral Fat Rating 10 Body Water % 45.8 Body Water Mass 88 Basal Metabolic Rate/Score 1,549 Intake Visit Reasons: TV Pre Op LSG 07/11/24 *SEE COMMENT* Allergies No Known Allergies Allergy (Verified 06/19/24 11:52) Medication List - Last Reconciled 06/19/24 by Abelardo Coombs MD albuterol sulfate 90 mcg/actuation 2 puffs inhalation Q6H PRN cholecalciferol (vitamin D3) 125 mcg PO DAILY 90 days levothyroxine 200 mcg PO DAILY ondansetron 4 mg PO Q12H pantoprazole 40 mg PO DAILY polyethylene glycol 3350 17 grams PO DAILY [probiotic PO] sertraline (Zoloft) 100 mg PO DAILY sucralfate 10 mL PO BID HPI HPI TV Pre Op LSG 07/11/24 *SEE COMMENT*: Details: Start time: 11.47am, End time: 12.07pm ?I spent 15 minutes speaking with the patient on the phone plus an additional 5 minutes reviewing and updating records for a total of 20 minutes HPI Comments Details: Overall weight loss: 29.4 lbs, or 13.3% TBWL using the [employer] kita Is doing 2 1/2 bottle Premier protein shakes (mixed with 4oz almond milk), 1 [employer] protein bar and one meal (7 forks of protein and 7 forks of salad or vegetables) Exercise: doing treadmill for 280cal daily PFSH Medical History (Updated 06/19/24 @ 12:02 by Abelardo Coombs MD) Obesity Anxiety Depression Tuberculosis Hypothyroid Asthma Surgical History H/O wisdom tooth extraction No history of previous surgery Family History Mother Lung cancer Father No problems noted. Son No problems noted. Son No problems noted. Social History Alcohol intake: current Alcohol intake frequency: holidays/special occasions only Patient Tobacco Use Status: Never used Tobacco Telehealth Telehealth Telehealth Platform: Telephone Location of provider rendering services: practice address Location of patient: address on file Patient Identification confirmed using: Name, : Yes Telehealth method: voice only Patient verbally consented to treatment: Yes Patient verbally consented to billing insurance company: Yes Patient informed of any privacy concerns related to visit: Yes Minutes spent on Phone/Video with Pt.: 20 Assessment & Plan Assessment & Plan (1) Obesity: Code(s): E66.9 - Obesity, unspecified Category: Medical Qualifiers: Obesity type: due to excess calories Obesity classification: adult class 1 (BMI 30 - 34.9) Serious obesity comorbidity presence: with serious comorbidity Body mass index: BMI 30.0-30.9 Qualified Code(s): E66.811 - Obesity, class 1; E66.09 - Other obesity due to excess calories; Z68.30 - Body mass index [BMI] 30.0-30.9, adult Plan: 1. Plan for lap sleeve gastrectomy including upper GI endoscopy. All tests has been completed and reviewed and the patient is cleared for the surgery. ?If diaphragmatic or ventral hernias are present at time of surgery, these will be repaired laparoscopically as well. Risks and complications were discussed in detail including possible conversion to an open procedure, anastomotic leak, bleeding requiring transfusion, small bowel obstruction, , DVT and pulmonary embolism, cardiac, or pulmonary complications, as small engine technician complications such as anastomotic ulcer, insufficient weight loss and vitamin deficiencies. I emphasized the importance of close follow-up, adherence to instructions and good communication. So far she has proven to be an excellent communicator and very compliant with all our directions accomplishing a great weight loss. I believe that she is an excellent candidate and she is ready. 2. Preop prescriptions were provided and explained the purpose of each one. Need to be purchased preop. Start Pantoprazole now as you get it from the pharmacy, 1 pill per day. Sucralfate and Zofran are for after surgery as needed. 3. Bowel prep: please do 7 packets ?of Miralax mixing each one with a an 8oz glass of water, crystal light, gatorade zero, or propel ?on 07/09/24 and the same amount on 07/10/24. The Miralax you begin with one packet at a time in 8oz water or crystal light, gatorade zero, or propel ?as early in the day as you can and you do them back to back until you finish them. Continue the protein shakes during ?the bowel prep. 4. Needs to purchase 1oz medicine cups . 5. Needs to purchase Children's liquid Tylenol for postop pain control. 6. Avoid aspirin, motrin, Advil, Aleve, Ibuprofen, Naproxyn. Tylenol is OK. 7. She needs to purchase the Celebrate 4:1 protein shakes or the Celebrate mult ivitamins from the hospital's gift shop. 8. Will do basic preop blood work-up any day between Wednesday07/03/24 and Wednesday07/07/24 fasting for 12 hours and is scheduled to see the Anesthesiologist prior to the day of surgery. 9. Importance of adherence to postop folllow-up and recommendations was underscored and she understands that. 10. Stop food and bars as of Wednesday07/02/24 and continue with 5 premade PREMIER protein shakes (HALF bottle mixed in 4oz almond milk) at 8am-10am, 11am-1pm, 2pm-4pm, 5pm-7pm and at 8pm-10pm 11. No soups, broths or V8 12. The patient's?medical?history has been reviewed and they are considered low risk for post op DVT and therefore DVT prophylaxis is not considered necessary. Travel after surgery was reviewed. The patient has not disclosed any travel [place] during the first 30 days after surgery and they have been advised that within the first 30 days after surgery any bus, plane, train or car travel over 2 hours in duration is contraindicated due to the possibility of developing blood clots from immobility. Any travel, needs to include periods of ambulation of 10 minutes in duration every 2 hours.? Patient was instructed to discuss any plans for travel during this period with their bariatric surgeon.? 13. Please take at the day of surgery the following medications: NONE 14. Stop any control pills and don't use them for one month after surgery 15. Absolutely no smoking or vaping, or marijuana until the surgery and for at least the first 4 weeks. Only nicotine patches are allowed. 16. Send me weight measurements on Wednesday06/24/24, 07/01/24, 07/08/24 and then on Wednesday07/11/24, the day of surgery before you go to the hospital. 17. Avoid any steroids by mouth for any reason. Let me know if someone prescribes them to you 18. These instructions supersede anything else you read in the handbook, anything you watched in videos or classes or you were told by any other provider. If there is any conflict, you follow the above instructions and nothing else. Orders: Orders Prothrombin Time INR Today E03.1 - Congenital hypothyroidism without goiter, E66.9 - Obesity, unspecified, E78.00 - Pure hypercholesterolemia, unspecified Partial Thromboplastin Time Today E03.1 - Congenital hypothyroidism without goiter, E66.9 - Obesity, unspecified, E78.00 - Pure hypercholesterolemia, unspecified C Reactive Protein Today E03.1 - Congenital hypothyroidism without goiter, E66.9 - Obesity, unspecified, E78.00 - Pure hypercholesterolemia, unspecified Hemoglobin A1c Today E03.1 - Congenital hypothyroidism without goiter, E66.9 - Obesity, unspecified, E78.00 - Pure hypercholesterolemia, unspecified Complete Blood Count Auto Diff Today E03.1 - Congenital hypothyroidism without goiter, E66.9 - Obesity, unspecified, E78.00 - Pure hypercholesterolemia, unspecified Insulin Today E03.1 - Congenital hypothyroidism without goiter, E66.9 - Obesity, unspecified, E78.00 - Pure hypercholesterolemia, unspecified Comprehensive Met. Panel Today E03.1 - Congenital hypothyroidism without goiter, E66.9 - Obesity, unspecified, E78.00 - Pure hypercholesterolemia, unspecified TSH reflex Free T4 Today E03.1 - Congenital hypothyroidism without goiter, E66.9 - Obesity, unspecified, E78.00 - Pure hypercholesterolemia, unspecified Type and Screen Today E03.1 - Congenital hypothyroidism without goiter, E66.9 - Obesity, unspecified, E78.00 - Pure hypercholesterolemia, unspecified Lipid Panel Today E03.1 - Congenital hypothyroidism without goiter, E66.9 - Obesity, unspecified, E78.00 - Pure hypercholesterolemia, unspecified Medications: New ondansetron Only take one every 12 hours as needed if you have nausea 4 mg PO Q12H 20 tabs 0RF nausea and vomiting R11.0 - Nausea polyethylene glycol 3350 Mix each measuring cup with 8oz of water, Crystal light, or Gatorade zero, or Propel and do 7 measuring cups on 07/09/24 and another 7 measuring cups on 17 grams PO DAILY 238 grams 0RF Z01.818 - Encounter for other preprocedural examination
[2024-06-19 11:59] VITALS: BMI 30.1
== END 2024-06-19 12:08 | disposition home or self-care (01) ==
PROVIDERS: PCP Family Medicine; Visit Provider Surgery
DX: E66.811 Obesity, class 1 (principal); E66.09 Other obesity due to excess calories; Z68.30 Body mass index [BMI] 30.0-30.9, adult
CPT/HCPCS: 99213

== ENCOUNTER → 2024-06-19 07:57 | Outpatient (BNVA) | payer OTHER, SELFPAY | PROVIDERS: PCP Family Medicine; Visit Provider Surgery ==

== ENCOUNTER 2024-07-12 06:02 | Day surgery (SDC) | payer OTHER, SELFPAY ==
[2024-07-04 09:40] LABS: Basophils Percent Auto 0.3 % (0-2); Eosinophils Absolute Auto 0.1 X10*3/uL (0.0-0.4); Eosinophils Percent Auto 2.2 % (0-4); Hematocrit 41.8 % (37.0-47.0); Hemoglobin 13.8 g/dl (12.0-16.0); Imm Gran Abs Auto 0.01 X10*3/uL (0.00-0.03); Imm Gran Pct Auto 0.2 % (0.0-0.4); Lymphocytes Absolute Auto 2.1 X10*3/uL (1.2-4.9); Lymphocytes Percent Auto 34.7 % (20-40); MANUAL DIFF FLAG NO; Mean Corpuscular Hemoglobin 27.4 pg (27.0-33.0); Mean Corpuscular Volume 82.9 fL (80.0-98.0); Mean Platelet Volume 10.6 fL (9.4-12.3); Monocytes Absolute Auto 0.4 X10*3/uL (0.1-1.2); Monocytes Percent Auto 5.9 % (2-11); Neutrophils Absolute Auto 3.4 x10*3/uL (2.0-8.3); Neutrophils Percent Auto 56.7 % (45-73); Platelet Count 265 X10*3/uL (160-400); Red Blood Count 5.04 X10*6/uL (4.20-5.50); Red Cell Distribution Width 13.8 % (11.0-16.0); White Blood Count 5.9 X10*3/uL (4.8-10.8)
[2024-07-04 09:45] LABS: Prothrombin Time 12.2 SEC (10.9-12.4)
[2024-07-04 09:47] LABS: Partial Thromboplastin Time 29.9 SEC (26.0-36.8)
[2024-07-04 10:28] LABS: Estimated Average Glucose 97 mg/dL; Total Hemoglobin (HGBA1C) 3678.1721 umol/L
[2024-07-04 10:30] LABS: Alanine Aminotransferase 67 U/L (0-31); Alkaline Phosphatase 70 U/L (39-117); Anion Gap 11 (12-20); Aspartate Amino Transferase 48 U/L (5-31); Bilirubin Total 0.6 mg/dL (0.0-1.0); Blood Urea Nitrogen 14 mg/dL (9-16); C Reactive Protein 0.61 mg/dL (< or = 0.50); Calcium 9.4 mg/dL (8.4-10.2); Carbon Dioxide 22 mmol/L (22-29); Chloride 109 mmol/L (96-108); Cholesterol 160 mg/dL (<200); Estimated Glomerular Filt Rate > 60; Glucose Random 85 mg/dL (60-115); HDL Cholesterol 38 mg/dL (>40); LDL Cholesterol Calculated 105 mg/dL (<100); Potassium 4.1 mmol/L (3.3-5.1); Sodium 138 mmol/L (135-145); Total Protein 7.1 g/dL (6.5-8.0); Triglycerides 85 mg/dL (<150)
[2024-07-04 10:45] VITALS: BMI 29.6
[2024-07-04 10:53] LABS: TSH reflex Free T4 0.59 uIU/mL (0.32-4.0)
[2024-07-04 11:14] LABS: Insulin 7 uU/mL (2-29)
--- NOTE | 2024-07-11 09:08 | HO.ANESPROP2 ---
Documented by User: Edelmira Lyn NP 07/11/24 09:09 HPI - Anesthesia Eval Consult details Narrative: 39yo F for Gastrectomy Sleeve- EGD,, possible diaphragmatic hernia, possible ventral hernia, possible open PMFSH Active Problems Active Problems: All Active Problems Esophagitis determined by biopsy (Acute) BMI 31.0-31.9,adult (Acute) Snoring (Acute) Hypothyroid (Acute) Hypercholesterolemia (Acute) Obesity (BMI 30-39.9) (Acute) Obesity (Acute) Anxiety (Acute) Depression (Acute) Asthma (Acute) Past Medical History Medical History Fatty liver Obesity Anxiety Depression Tuberculosis (~2007) Hypothyroid Asthma Family History Family History Mother Lung cancer Father No problems noted. Son No problems noted. Son No problems noted. Family history of problems with anesthesia: No Surgical History Surgical History History of esophagogastroduodenoscopy (EGD) (05/02/24) H/O wisdom tooth extraction History of Problems with Anesthesia: No Social History Social History Household Members: Family Housing: House Alcohol intake: current Alcohol intake frequency: holidays/special occasions only Patient Tobacco Use Status: Never used Tobacco e-Cigarette/Vaping Use: Never Used Use of substances other than those prescribed or required for medical reasons: No Have you been hit, kicked, punched, or otherwise hurt by someone within the past year? If so, by whom?: No Are you DNR?: No Advance Directives: No Advance Directives Information Provided: Yes Advance Directives on File: No Recently lost weight without trying: No Nutrition Risks: No Nutritional Risk Patient : No FDLMP: 06/24/2024 : No Poor oral hygiene: No Meds Allergies Allergy/AdvReac Type Severity Reaction Status Date / Time No Known Allergies Allergy Verified 07/12/24 07:40 Home Medications ?Medication ?Instructions ?Recorded ?Confirmed ?Last Taken ?Type levothyroxine 200 mcg capsule 200 mcg PO DAILY 01/20/24 07/12/24 07/11/24 History sertraline 100 mg tablet (Zoloft) 100 mg PO DAILY 01/20/24 07/12/24 07/11/24 History albuterol sulfate 90 mcg/actuation 2 puff inhalation Q6H PRN 05/15/24 07/04/24 Unknown History aerosol inhaler Shortness Of Breath Or Wheezing Exam Height,Weight and Vital Signs: Height 5 ft 7 in Weight 85.729 kg Pertinent Lab Results Pertinent Lab Results: Laboratory Tests 07/04/24 07/04/24 07/04/24 09:12 09:27 Unknown WBC 5.9 RBC 5.04 Hgb 13.8 Hct 41.8 MCV 82.9 MCH 27.4 MCHC 33.0 RDW 13.8 Plt Count 265 MPV 10.6 Immature Gran % (Auto) 0.2 Neut % (Auto) 56.7 Lymph % (Auto) 34.7 Griggs % (Auto) 5.9 Eos % (Auto) 2.2 Baso % (Auto) 0.3 Lymph # (Auto) 2.1 [place]gs # (Auto) 0.4 Eos # (Auto) 0.1 Baso # (Auto) 0.0 Abs Immat Gran (auto) 0.01 Absolute Neuts (auto) 3.4 Absolute Nucleated RBC 0.000 Nucleated RBC % (auto) 0.0 PT 12.2 INR 1.0 APTT 29.9 Sodium 138 Potassium 4.1 Chloride 109 H Carbon Dioxide 22 Anion Gap 11 L BUN 14 Creatinine 0.70 Estim Creat Clear Calc TNP Estimated GFR > 60 Random Glucose 85 Estimat Average Glucose 97 Hemoglobin A1c % 5.0 Insulin Level 7 Calcium 9.4 D Total Bilirubin 0.6 AST 48 H ALT 67 H Alkaline Phosphatase 70 C-Reactive Protein 0.61 H Total Protein 7.1 Albumin 4.0 Triglycerides 85 Cholesterol 160 LDL Cholesterol, Calc 105 H HDL Cholesterol 38 L TSH 0.59 Blood Type A Positive Antibody Screen NEGATIVE Narrative Narrative: EKG 03/2024 Vent. Rate : 079 BPM Atrial Rate : 079 BPM P-R Int : 154 ms QRS Dur : 092 ms QT Int : 388 ms P-R-T Axes : 068 -07 059 degrees QTc Int : 444 ms Normal sinus rhythm Normal ECG No previous ECGs available Assessment and Plan Assessment Anesthesia Assessment: Chart Reviewed Final Anesthetic Review Family History of Problems with Anesthesia: No History of Problems with Anesthesia: No Documented by User: Polina Hendricks MD 07/12/24 08:42 HPI - Anesthesia Eval Consult details Narrative: 39yo F for EGD, Laparoscopic Sleeve Gastrectomy, possible diaphragmatic hernia repair, possible ventral hernia repair, possible open PMFSH Active Problems Active Problems: All Active Problems Esophagitis determined by biopsy (Acute) Snoring (Acute) Hypothyroid (Acute) Hypercholesterolemia (Acute) Obesity (Acute) Anxiety (Acute) Depression (Acute) Asthma (Acute)- rarely needs inhaler Past Medical History Medical History Fatty liver Obesity Anxiety Depression Tuberculosis (~2007) Hypothyroid Asthma Family History Family History Mother Lung cancer Father No problems noted. Son No problems noted. Son No problems noted. Family history of problems with anesthesia: No Surgical History Surgical History History of esophagogastroduodenoscopy (EGD) (05/02/24) H/O wisdom tooth extraction History of Problems with Anesthesia: No Social History Social History Household Members: Family Housing: House Alcohol intake: current Alcohol intake frequency: holidays/special occasions only Patient Tobacco Use Status: Never used Tobacco e-Cigarette/Vaping Use: Never Used Use of substances other than those prescribed or required for medical reasons: No Have you been hit, kicked, punched, or otherwise hurt by someone within the past year? If so, by whom?: No Are you DNR?: No Advance Directives: No Advance Directives Information Provided: Yes Advance Directives on File: No Recently lost weight without trying: No Nutrition Risks: No Nutritional Risk Patient : No FDLMP: 06/24/2024 : No Poor oral hygiene: No Meds Allergies Allergy/AdvReac Type Severity Reaction Status Date / Time No Known Allergies Allergy Verified 07/12/24 07:40 Home Medications ?Medication ?Instructions ?Recorded ?Confirmed ?Last Taken ?Type levothyroxine 200 mcg capsule 200 mcg PO DAILY 01/20/24 07/12/24 07/11/24 History sertraline 100 mg tablet (Zoloft) 100 mg PO DAILY 01/20/24 07/12/24 07/11/24 History albuterol sulfate 90 mcg/actuation 2 puff inhalation Q6H PRN 05/15/24 07/04/24 Unknown History aerosol inhaler Shortness Of Breath Or Wheezing Exam Height,Weight and Vital Signs: Height 5 ft 7 in Weight 85.729 kg Vital Signs Temp Pulse Resp BP Pulse Ox O2 Del Method 07/12/24 06:37 97.0 F 87 16 109/70 94 Room Air Pertinent Lab Results Pertinent Lab Results: Laboratory Tests 07/04/24 07/04/24 07/04/24 09:12 09:27 Unknown WBC 5.9 RBC 5.04 Hgb 13.8 Hct 41.8 MCV 82.9 MCH 27.4 MCHC 33.0 RDW 13.8 Plt Count 265 MPV 10.6 Immature Gran % (Auto) 0.2 Neut % (Auto) 56.7 Lymph % (Auto) 34.7 [place] % (Auto) 5.9 Eos % (Auto) 2.2 Baso % (Auto) 0.3 Lymph # (Auto) 2.1 [place] # (Auto) 0.4 Eos # (Auto) 0.1 Baso # (Auto) 0.0 Abs Immat Gran (auto) 0.01 Absolute Neuts (auto) 3.4 Absolute Nucleated RBC 0.000 Nucleated RBC % (auto) 0.0 PT 12.2 INR 1.0 APTT 29.9 Sodium 138 Potassium 4.1 Chloride 109 H Carbon Dioxide 22 Anion Gap 11 L BUN 14 Creatinine 0.70 Estim Creat Clear Calc TNP Estimated GFR > 60 Random Glucose 85 Estimat Average Glucose 97 Hemoglobin A1c % 5.0 Insulin Level 7 Calcium 9.4 D Total Bilirubin 0.6 AST 48 H ALT 67 H Alkaline Phosphatase 70 C-Reactive Protein 0.61 H Total Protein 7.1 Albumin 4.0 Triglycerides 85 Cholesterol 160 LDL Cholesterol, Calc 105 H HDL Cholesterol 38 L TSH 0.59 Blood Type A Positive Antibody Screen NEGATIVE Laboratory Results - last 24 hr 07/12/24 06:15 Urine Test NEGATIVE Airway Mallampati Class: III TM Dist: >3cm Neck ROM: Full Loose/Missing/Broken Teeth: Yes ([place] teeth extracted. Denies broken or loose teeth ) Heart: RRR Lungs: CTAB Assessment and Plan Assessment Anesthesia Assessment: Anesthesia Plan Discussed and Chart Reviewed Final Anesthetic Review Family History of Problems with Anesthesia: No History of Problems with Anesthesia: No NPO: Yes ASA Class: II Final Preanesthetic Review: No Changes in Pt Med Stat, Meds/Allgs Chart Reviewed, Consent Obtained/Reviewed and Anes Risks/Benef Reviewed Patient Risk: Intermediate Procedure Risk: Intermediate Assessment/Block/Sedation in SS: Assess/Block/Sedation- Anesthetic Plan Anesthetic Plan: GA Disposition: Standard PACU
[2024-07-12] VITALS (14 sets, daily range): BP systolic 107–123; BP diastolic 62–79; PULSE 75–94; RESP 12–20; TEMP 36.1–37.1; O2SAT 93–98
[2024-07-12 06:26] LABS: UPreg QC Valid YES; Urine Pregnancy NEGATIVE (NEGATIVE)
[2024-07-12] MEDS: Lactated Ringers 1,000 ML 999 ML IV (06:31)
[2024-07-12] MEDS: Lactated Ringers 1,000 ML 100 ML IVCONT ×3 (06:31→22:15)
[2024-07-12] MEDS: Aprepitant 32 MG/4.4 ML VIAL IVPUSH (06:35)
--- NOTE | 2024-07-12 07:35 | MHC.SHP ---
Pre-Procedural Eval Section A - 24 Hr Update-Section A only Date of Service: 07/12/24 The patient is an INPATIENT: No The patient has been examined within 24 hours of the surgical procedure. The History & Physical has been completed within 30 days and I have reviewed it.: Yes Section B - Complete if H&P > 30 days Chief Complaint: Obesity Relevant Family History (Specify if Yes): No Relevant Social History: None Present Medications: None Medical History: No relevant PMH History of Previous Operations: No relevant previous surgery Allergies: Allergies Allergy/AdvReac Type Severity Reaction Status Date / Time No Known Allergies Allergy Verified 07/04/24 10:39 Review of Systems Sugical H&P ROS: Negative: Constitution, Cardiovascular, Respiratory, Neurological, Psychiatric, Hem-Onc, Allergic/Immunologic, Gastrointestinal, Genitourinary, Musculoskeletal, Integumentary, Endocrine and Eyes/Ears/Nose/Throat Exam Surgical H&P Exam: Normal: HEENT, Normal: Heart, Normal: Lungs, Normal: Extremities, Normal: Abdomen, Normal: Skin and Normal: Neurological Plan Diagnosis/Plan: Unchanged I have reviewed the history and physical and performed a pertinent physical examination on my patient. No changes have occurred unless specified. Time Spent With Patient Time: Total time managing care of this patient today ____ minutes.
--- NOTE | 2024-07-12 07:36 | PM.OP ---
Brief Operative Note Date of Service: 07/12/24 Pre-op diagnosis: Severe obesity with comorbidities (see below) Post-op diagnosis: same (& diaphragmatic hernia & congenital adhesions) Procedure: INITIAL PATIENT BMI ON PRESENTATION AT OUR OFFICE: 35.2 kg/m2 LAST BMI BEFORE SURGERY: 29.3 kg/m2 COMORBIDITIES: hypothyroidism, depression, anxiety, hyperlipidemia, GERD, liver steatosis ?The patient presented to the Weight Management Program with significant obesity that was negatively impacting the patient's comorbidities as listed above.? The program is a phased program with a special focus on preoperative medical weight management to promote substantial weight loss and prepare the patients for the second phase of the program: bariatric surgery. The patient participated in an intensive weekly lifestyle ?intervention and exercise program during which the patient ?has lost between the initial office visit and the last preoperative visit 35.1 lbs, or 15.8% of initial actual body weight. It was deemed appropriate for the patient to now have bariatric surgery. In light of the current Covid-19 pandemic and the well documented strong association of obesity and increased risk of worse outcomes if infected with Covid-19 (REFERENCES:https://pubmed.ncbi.nlm.nih.gov/47725922/,?https://pubmed.ncbi.nlm.nih.gov/83280752/), any delay in undergoing bariatric surgery may lead to the patient's worsening health condition and increased?risk of more severe Covid-19 disease if infected. In addition a recent?study from [facility] published in [facility] on 08/18/2021 ([email or web address]) found that, among patients with obesity, substantial weight loss achieved with surgery was associated with improved outcomes of COVID-19 infection. The findings suggest that obesity can be a modifiable risk factor for the severity of COVID-19 infection. In addition, the patient met the BMI-criteria for bariatric surgery based on the BMI on initial presentation. The patient should not be penalized for achieving such weight loss because ?it is not sustainable long-term without surgical intervention and it was achieved in preparation for bariatric surgery ?under my direction and based on my published research ([email or web address]).[email or web address] and?https://www.soard.org/article/[email or web address](88)30930-X/pdf) ?that a 10% preoperative weight loss improves long-term weight loss after surgery and reduces perioperative complications.? Insurance carriers such as [employer] [place] have endorsed my recommendations ?and have included in their policies criteria to include a 10% preoperative weight loss requirement. PROCEDURE: Esophago-gastroscopy, laparoscopic repair of incarcerated diaphragmatic hernia, laparoscopic lysis of adhesions, laparoscopic sleeve gastrectomy and laparoscopic gastropexy INDICATIONS: This is a 39 year-old female who was electively scheduled for laparoscopic, possibly open sleeve gastrectomy. The risks and complications of the procedure were discussed with the patient in advance, particularly the possibility of ; pulmonary embolism; staple line leak; bleeding; GERD; cardiac, pulmonary, or renal complications; as well as long-term problems such as insufficient weight loss, vitamin deficiency, strictures, or ulcers. The patient understood all the risks, and was in agreement to proceed with surgery. DESCRIPTION OF PROCEDURE: After informed consent was obtained from the patient, the patient was given preoperative antibiotics, and was transferred to the operating room. After successful induction of general anesthesia, pneumatic compression devices were placed on both lower extremities. An upper endoscopy was performed next. The oropharynx and esophagus appeared to be within normal limits. There was a diaphragmatic hernia present of moderate size consistent with the findings of the preoperative upper GI. The stomach was entered. Then after all fluid and air were suctioned and the stomach was fully decompressed, the scope was withdrawn and secured in the mid esophagus. The patient was then prepped and draped in the usual sterile manner, and abdominal access was established at the right upper quadrant with the Kurtis technique. A 12 mm blunt port was inserted, and the abdomen was insufflated with CO2 to a pressure of 15 mmHg. Under direct visualization, additional ports were placed, specifically two 5 mm Versi-step ports to the left upper quadrant, and a 5 mm Versi-Step port to the right upper quadrant. 1% lidocaine plain was used to infiltrate all port sites as well as all fascia defects. Following that, the patient was placed in a steep reverse Trendelenburg position. An additional 5 mm port was placed to the right flank for the Mediflex retractor that was used to retract the left lobe of the liver. The gastro-esophageal fat pad was opened with the ultrasonic device (Thunderbeat, Olympus) and the anterior esophagus and hiatus were exposed. The angle of His was opened with the ultrasonic device the fundus of the stomach from any diaphragmatic and splenic attachments. I then opened the gastrocolic ligament between the transverse colon and the greater curvature of the stomach with the ultrasonic device to enter the lesser sac and facilitate the ligation of the short gastric vessels. I started at a mid-point along the greater curvature and using the Thunderbeat, all short gastric vessels were divided all the way to the angle of His until the left danitza was completely dissected at its entirety. I then divided the gastro-colic ligament distally to a distance of about 3-4 cm proximal to the pylorus. There were extensive congenital adhesions between the pancreas and posterior gastric wall. Those were lysed completely with the ultrasonic device. Adhesiolysis took approximately 45 min to complete. There was an obvious significant-sized hiatal hernia. I continued dissecting along the hiatus toward the left danitza and the angle of His. I fully mobilized the fat pad that was incarcerated in the hernia. I then continued by dissecting even further into the posterior retro-esophageal space all the way to the angle of His. I continued to mobilize the esophagus into the mediastinum circumferentially. Both vagal nerves were seen and preserved. At that point, I was able to have at least 3 to 5 cm of esophagus into the abdomen.? After I completely mobilized the esophagus from both the left and right danitza and I had a good mobilization of the esophagus circumferentially, I closed the hernia defect with three interrupted #0 Surgidac sutures using the Endo Stitch device, two of which was placed posterior and one of which anterior to the esophagus. ? The stomach was then divided transversely with three Endo NIK-45 purple and three NIK-6s0 articulating purple loads using the ThrowMotionIA stapler and loads. Every effort was made that the gastric sleeve had a tubular shape and an even caliber throughout. Once the sleeve resection was completed, the staple line of the gastric sleeve was reinforced with Hemoclips. The resected stomach was retrieved without difficulty from the Kurtis port. A gastropexy was then performed in order to prevent postoperative GERD and partial gastric volvulus. Several interrupted 2.0 Surgidac sutures were placed between the sleeve's staple line and the previously divided greater omentum and gastro-colic ligament using the Endo-Stitch device. ?An upper endoscopy was performed. There was no narrowing at the GE junction. The scope was easily advanced all the way to the pylorus which was clearly visualized. There was no narrowing anywhere and the sleeve's caliber was even throughout. The sleeve's staple line was inspected and there was no evidence of ischemia, bleeding or dehiscence. At that point the gastroscope was withdrawn from the patient?s mouth while we were decompressing the bowel and the stomach from any remaining air. I looked into the lesser sac to see how the sleeve was situating and it was situating well. There was no bleeding from the staple line, spleen, or short gastric vessels. The Mediflex retractor was removed, and the undersurface of the liver was inspected and there was no bleeding. The patient was placed in supine position. I closed the fascial defect of the 12 mm port site with a figure of eight #1 Polysorb suture. Then 100 cc 0.25 % Marcaine plain with 10 mg of Dexamethasone were used to infiltrate the fascial closure as well as all skin incisions. At this point, the abdomen was deflated, all ports were removed under direct vision, and no bleeding was noted from any of the port sites. The skin incisions were irrigated with saline and were closed with 4-0 absorbable monofilament sutures. Steri-Strips and OpSites were used to cover all incisions. The patient was extubated and was transferred in stable condition to the recovery room for further care. I was present and performed all vazquez parts of the procedure. Elenita Vega was the business development assistant. There were no residents to assist with this case. Derek Coombs MD, PhD, FACS Surgeon: Abelardo Coombs MD Anesthesia: GETA, local and other (TAP block) Was an Customer Experience Retail Clerk used for this Procedure?: No Customer Experience Retail Clerk: Shawn Vega Estimated blood loss (mL): 10 IV fluids (mL): 2,500 Urine output (mL): 0 (No Kwon to record output) Pathology: other (Stomach) Condition: stable Disposition: PACU
--- NOTE | 2024-07-12 07:38 | P.PNGS_ITS ---
Subjective Subjective Date of Service: 07/13/24 Interval history: Feels well. Mild incisional pain. She is tolerating phase 1 bariatric diet Physical Exam 2 Vital Signs: Vital Signs: Last Vital Signs Temp 97.0 F 07/12/24 06:37 Pulse 87 07/12/24 06:37 Resp 16 07/12/24 06:37 BP 109/70 07/12/24 06:37 Pulse Ox 94 07/12/24 06:37 O2 Del Method Room Air 07/12/24 06:37 BMI result Body Mass Index 29.6 GI: Inspection: Yes normal to inspection, Yes incision (clean, dry and intact) and Yes obesity Extrem: Right lower extremity: normal to inspection (no calf tenderness) L eft lower extremity: normal to inspection (no calf tenderness) Objective Data Active Medications Albuterol Sulfate (Albuterol Sulfate (0.083%) 2.5 Mg/3 Ml Vial.Neb) 2.5 mg INHALE ONCE PRN PRN Reason: Shortness of Breath/Wheezing Lactated Ringer's (Lr) 1,000 mls @ 100 mls/hr IVCONT .[facility]H [facility] Last Admin: 07/12/24 06:31 Dose: 100 mls/hr Documented By: LOU Lactated Ringer's (Lr) 1,000 mls @ 999 mls/hr IV .Q1H1M [facility] Stop: 07/12/24 08:15 Last Admin: 07/12/24 06:31 Dose: 999 mls/hr Documented By: LOU Labs 07/13/24 05:44 07/13/24 05:44 Labs: Laboratory Results - last 24 hr 07/04/24 07/12/24 09:27 06:15 Urine Test NEGATIVE Blood Type A Positive Antibody Screen NEGATIVE Procedures Date of Service Date of Service: 07/13/24 Progress Note: A&P Assessment and plan (1) Obesity: Status: Acute Assessment and Plan: s/p laparoscopic sleeve gastrectomy, lysis of adhesions, diaphragmatic hernia repair and gastropexy Doing well Will check am labs and if OK the patient will be discharged home (2) Hypothyroid: Status: Acute (3) Hypercholesterolemia: Status: Acute (4) Anxiety: Status: Acute (5) Depression: Status: Acute (6) Fatty liver: Status: Acute (7) S/P laparoscopic sleeve gastrectomy: Status: Acute (8) Status post repair of paraesophageal diaphragmatic hernia: Status: Acute (9) Diaphragmatic hernia: Status: Acute (10) Congenital intra-abdominal adhesions: Status: Acute Time Spent With Patient Time: Total time managing care of this patient today ____ minutes. Quality Stroke Does the patient have a stroke diagnosis?: No VTE Prior VTE?: No VTE Risk Level:: Surgical - moderate VTE Device Contraindication: N/A - Device Ordered VTE Drug Contraindication: Treatment Not Indicated
[2024-07-12] MEDS: ceFAZolin Sodium/Dextrose,Iso 2 GM/50 ML PIGGYBACK IV ×2 (08:01→13:32)
--- NOTE | 2024-07-12 09:21 | PHA.MEDREC ---
Pharmacy Consult ? Medication Reconciliation Pharmacy has reviewed the medication reconciliation done by nursing staff (changed levothyroxine 200 mcg capsules to tablets).
[2024-07-12] MEDS: Acetaminophen 1,000 MG/100 ML PIGGYBACK 400 MG IV (09:35)
--- NOTE | 2024-07-12 10:36 | P.DS_ITS ---
DS: Providers Provider Date of Service: 07/13/24 Primary care physician: Kar Drummond MD DS: Diagnosis Discharge Diagnosis (1) Obesity: Status: Acute (2) Hypothyroid: Status: Acute (3) Hypercholesterolemia: Status: Acute (4) Anxiety: Status: Acute (5) Depression: Status: Acute (6) Fatty liver: Status: Acute DS: Summary Hospital Course Hospital Course: ADMITTING DIAGNOSIS: obesity, gesr, hiatal hernia, hld, hypothyroid, anxirty, depression ? DISCHARGE DIAGNOSIS: same, s/p laparoscopic sleeve gastrectomy and repair diaphragmatic hernia ? PAST SURGICAL HISTORY: ? PROCEDURE: upper endoscopy, laparoscopic sleeve gastrectomy and repair of diaphragmatic hernia ? DISCHARGE SUMMARY: ? History of Present Illness: ? The patient is a?39 year-old woman with a BMI of?35.2 kg/m2 and associated co- morbidities as described above. The patient had extensive work-up,lost?33.1 lbs preoperatively and was electively scheduled for laparoscopic, possible open sleeve gastrectomy and gastropexy. Risks and complications of the surgery were discussed with the patient in advance, particularly the possibility of , pulmonary embolism, anastomotic leak, bleeding, bowel injury, GERD, cardiac, renal or pulmonary complications. The patient understood all the risks and was in agreement with the surgical plan. ? Hospital Course: ? The patient underwent an uneventful laparoscopic sleeve gastrectomy with gastropexy and repair of diaphragmatic hernia on the day of admission. Postoperatively, the patient was transferred to the surgical floor. The patient received IV Acetaminophen and IV dilaudid for pain control. Patient was started on bariatric phase 1 diet POD #0. On postoperative day one, the patient was feeling well without nausea, vomiting, fevers, or tachycardia. The patient had some mild incisional pain and the abdomen was soft. ? On the morning of postoperative day one, the patient was continued on 1 ounce of water or ice every half hour. During the day, the patient did fairly well, having some incisional pain, but able to ambulate adequately and to tolerate liquids well. ? Since the patient is doing well, we decided that the patient was ready to be discharged. The patient was given instructions to follow-up with me next week and to call my office for any fever over 101, persistent abdominal pain, nausea, vomiting, GERD, symptoms of DVT such as calf tenderness, or leg swelling, or pulmonary embolism such as chest pain or shortness of breath. The patient was also instructed to drink 40-60 ounces of liquids per day using the 1-ounce cups. The patient had been given prescriptions for Tylenol for pain, Zofran prn for nausea, and pantoprazole and carafate previously. The patient was encouraged to ambulate and use the incentive spirometer. The patient was allowed to shower, but no baths, and encouraged to stay active at home. All of these instructions were given to the patient personally. All questions were answered and the patient understood all instructions, the instructions were also given to the patient in print. Time Attestation Total time managing care of this patient today: 25 mintues. Discharge Coordination Time (in mins): 25 Quality: Safe Use of Opioids Does Pt have an Active Cancer Diagnosis on the Problem List?: No Quality: Stroke Does the patient have a stroke diagnosis?: No Physical Exam Vital Signs: Vital Signs: Last Vital Signs Temp 97.0 F 07/12/24 06:37 Pulse 87 07/12/24 06:37 Resp 16 07/12/24 06:37 BP 109/70 07/12/24 06:37 Pulse Ox 94 07/12/24 06:37 O2 Del Method Room Air 07/12/24 06:37 BMI result Body Mass Index 29.6 DS: Data Data Completed and Pending Pending studies at discharge: Pending at discharge 07/12/24 10:13 Surgical [PTH] Routine Labs on day of discharge: Laboratory Results - last 24 hr 07/12/24 06:15 Urine Test NEGATIVE Discharge Plan Discharge Patient Disposition: Home, Self-Care Referrals: Kar Drummond MD [Primary Care Provider] - 1 Week Discharge Medications: Continued pantoprazole 40 mg tablet,delayed release (DR/EC) 40 mg PO DAILY Qty: 90 0RF sucralfate 100 mg/mL suspension 10 ml PO BID Qty: 600 2RF levothyroxine 200 mcg tablet 200 mcg PO QAM ondansetron 4 mg tablet,disintegrating 4 mg PO Q12H Qty: 20 0RF Rx Instructions: Only take one every 12 hours as needed if you have nausea sertraline [Zoloft] 100 mg tablet 100 mg PO DAILY albuterol sulfate 90 mcg/actuation HFA aerosol inhaler 2 puff inhalation Q6H PRN (Reason: Shortness Of Breath Or Wheezing) Discontinued cholecalciferol (vitamin D3) 125 mcg (5,000 unit) capsule 125 mcg PO DAILY 90 Days Qty: 90 0RF polyethylene glycol 3350 17 gram/dose powder 17 g PO DAILY Qty: 238 0RF Rx Instructions: Mix each measuring cup with 8oz of water, Crystal light, or Gatorade zero, or Propel and do 7 measuring cups on 07/09/24 and another 7 measuring cups on 07/10/24 Discharge Orders: Discharge Order (Routine); Ordered 07/13/24 Ordered By: Abelardo Coombs Activity Restrictions/Additional Instructions: No tub baths, sex or returning to work until discussed at first post op appointment. No exercise, alcohol, tobacco or illegal drug use. Continue to use incentive spirometer hourly while awake. Walk in home for 5- 10 minutes every 2 hours during the first week. Follow all instructions in the bariatric handbook and call with any questions.Discharge Instructions 1. Please call your doctor or come back to the emergency room should any new symptoms arise. 2. You will receive a courtesy call from [facility] 24-48 hours after discharge. 3. Activity: abstain from alcohol, practice limited stair climbing, no bending, no driving, no exercise, no illicit substances, no lifting, no sex, no tub bath, no work. 4. Diet: continue as discussed with Dr. Coombs. 5. Dressing Change/Wound Care: Your incision is covered by clear bandages and guaze underneath. If the area is tender, you may apply an ice pack for short intervals (no more than 20 minutes on, followed by at least 20 minutes off). Do not apply heat. Do not use creams, lotions, or topical antibiotics unless in structed to do so by your surgeon. These can cause infection or allergic reaction. 6. Call your doctor if: - Your temperature exceeds 101.5 F - You experience excessive pain or swelling - You have an unexpected reaction to medication - You have excessive bleeding - You experience continued vomiting/nausea - Your incision begins to separate - Your incision shows signs of infection such as increased redness, swelling, excessive pain, heat, or drainage (light blood or clear fluid is normal) 7. General instructions: No lifting greater than 5 lbs for 1 week and not more than 20lbs the next 3?weeks. No driving until seen at the office in 5-7 days after surgery. If you do not move your bowels in the next 2 days, please tell?Dr. Coombs. Please walk around your home every hour or two to prevent blood clots from forming in your legs. You do not need to wake from sleeping to walk. Please sleep in a bed or couch to prevent kinking at the hips and knees. Please take your incentive spirometer (your lung pivot end polisher) home with you and use it for the next few days to prevent pneumonia. You may shower, no hot tubs, baths or swimming pools.?Please follow the post op diet instructions you are?given by Dr Coombs? and text me daily at 5-6pm for an update.?If you have any issues or concerns or questions please communicate this to him via text.? The Celebrate shakes have all of the bariatric vitamins you need if you consume these shakes. If you are drinking other protein shakes, you will need to purchase the Celebrate multivitamins and calcium that are available in the hospital gift shop on the first floor of the [facility].??Do not take anything without first discussing with Dr Coombs. Please make sure you are consuming at least 40 ounces of fluids per day starting the?day AFTER your discharge from the hospital. Always drink 1-2 ml per minute using the 5ml?syringe. If you drink faster you may experience?bloating,?gas pain, burping, nausea or heartburn. In that case please slow down your pace and use the syringe to?understand better the?proper?pace and volume of drinking. Do not hesitate to contact the office with any questions at . The patient's medical history has been reviewed and they are considered low risk for post op DVT and therefore DVT prophylaxis is not considered necessary. Travel after surgery was reviewed. The patient has not disclosed any travel plans during the first 30 days after surgery and they have been advised that within the first 30 days after surgery any bus, plane, train or car travel over 2 hours in duration is contraindicated due to the possibility of developing blood clots from immobility. Any travel, needs to include periods of ambulation of 10 minutes in duration every 2 hours.? The patient was instructed to discuss any plans for travel during this period with their bariatric surgeon. Print Language: Malay Discharge Date/Time: 07/13/24 09:19
[2024-07-12] MEDS: HYDROmorphone HCl 0.5 MG/0.5 ML SYRINGE 0.25 MG IVPUSH (11:11)
[2024-07-12 12:11] LABS: Anion Gap 15 (12-20); Blood Urea Nitrogen 13 mg/dL (9-16); Calcium 8.8 mg/dL (8.4-10.2); Carbon Dioxide 20 mmol/L (22-29); Chloride 106 mmol/L (96-108); Creatinine Clr Calc Pharmacy 114.1; Estimated Glomerular Filt Rate > 60; Glucose Random 110 mg/dL (60-115); Potassium 4.2 mmol/L (3.3-5.1); Sodium 137 mmol/L (135-145)
[2024-07-12 12:30] LABS: Hematocrit 39.3 % (37.0-47.0); Hemoglobin 12.6 g/dl (12.0-16.0)
[2024-07-12] MEDS: Acetaminophen 1,000 MG/100 ML PIGGYBACK 16.7 MG IV ×2 (15:10→20:38)
[2024-07-13] MEDS: Acetaminophen 1,000 MG/100 ML PIGGYBACK 16.7 MG IV (02:39)
[2024-07-13 03:45] VITALS: BP 120/59; PULSE 79; RESP 16; TEMP 36.9; O2SAT 94
[2024-07-13] MEDS: Pantoprazole Sodium 40 MG/10 ML VIAL IVPUSH (05:33)
[2024-07-13] MEDS: Levothyroxine Sodium 200 MCG TABLET PO (05:33)
[2024-07-13 06:30] LABS: MANUAL DIFF FLAG NO
[2024-07-13 06:49] LABS: Anion Gap 14 (12-20); Blood Urea Nitrogen 8 mg/dL (9-16); Calcium 8.9 mg/dL (8.4-10.2); Carbon Dioxide 17 mmol/L (22-29); Chloride 106 mmol/L (96-108); Creatinine Clr Calc Pharmacy 132.2; Estimated Glomerular Filt Rate > 60; Glucose Random 91 mg/dL (60-115); Sodium 133 mmol/L (135-145)
[2024-07-13 06:55] LABS: Basophils Percent Auto 0.1 % (0-2); Hematocrit 36.2 % (37.0-47.0); Hemoglobin 12.2 g/dl (12.0-16.0); Imm Gran Abs Auto 0.04 X10*3/uL (0.00-0.03); Imm Gran Pct Auto 0.3 % (0.0-0.4); Lymphocytes Absolute Auto 1.4 X10*3/uL (1.2-4.9); Lymphocytes Percent Auto 10.8 % (20-40); Mean Corpuscular HGB Conc 33.7 g/dl (31.0-35.0); Mean Corpuscular Hemoglobin 27.4 pg (27.0-33.0); Mean Corpuscular Volume 81.2 fL (80.0-98.0); Mean Platelet Volume 11.7 fL (9.4-12.3); Monocytes Absolute Auto 0.9 X10*3/uL (0.1-1.2); Monocytes Percent Auto 6.7 % (2-11); Neutrophils Absolute Auto 10.7 x10*3/uL (2.0-8.3); Neutrophils Percent Auto 82.1 % (45-73); Platelet Count 232 X10*3/uL (160-400); Red Blood Count 4.46 X10*6/uL (4.20-5.50); Red Cell Distribution Width 13.7 % (11.0-16.0)
[2024-07-13] MEDS: Sertraline HCL 100 MG TABLET PO (07:00)
[2024-07-13 07:48] VITALS: BP 100/59; PULSE 80; RESP 16; TEMP 36.8; O2SAT 93
--- NOTE | 2024-07-13 09:27 | MHC.CM.PN ---
Patient dc'd home self care via private transport prior to CM assessment.
== END 2024-07-13 09:19 | disposition home or self-care (01) ==
LOC: HO.SSS 10:38 → HO.S3 10:53
PROVIDERS: Nurse Practitioner; Physician Assistant Surgical; PCP Family Medicine; Visit Provider Surgery
PROC: (CPT 43845; principal; 2024-07-12 07:30)
DX: E66.01 Morbid (severe) obesity due to excess calories (principal); Z68.29 Body mass index [BMI] 29.0-29.9, adult; E03.9 Hypothyroidism, unspecified; E03.1 Congenital hypothyroidism without goiter; K44.9 Diaphragmatic hernia without obstruction or gangrene; K21.9 Gastro-esophageal reflux disease without esophagitis; Q43.3 Congenital malformations of intestinal fixation; K76.0 Fatty (change of) liver, not elsewhere classified; E78.5 Hyperlipidemia, unspecified; F32.A Depression, unspecified
CPT/HCPCS: 43775; 43281; 49329; 43659; 36415; 80048; 80053; 80061; 81025; 83036; 83525; 84443; 85014; 85018; 85025; 85610; 85730; 86140; 86850; 86900; 86901; 88304; 88305; 88307; 88342; A4649; C9145; J0131; J0690; J1100; J1171; J2003; J2250; J2405; J2470; J2704; J2795; J3010; J7120

== ENCOUNTER → 2024-07-12 06:02 | Outpatient (BNV) | payer OTHER, SELFPAY | PROVIDERS: PCP Family Medicine; Visit Provider Surgery | DX: E66.9 Obesity, unspecified (principal); Z68.29 Body mass index [BMI] 29.0-29.9, adult; K66.0 Peritoneal adhesions (postprocedural) (postinfection) | CPT/HCPCS: 43659; 43775; 99024; 99499 ==

== ENCOUNTER 2024-07-19 13:02 | Outpatient (AMB) | payer OTHER, SELFPAY ==
--- NOTE | 2024-07-19 13:15 | A.OFFVIS_ITS ---
VS Expanded 07/19/24 13:27 BP 118/67 Blood Pressure Location Rt brachial Blood Pressure Position Sitting Pulse 95 Pulse Source Pulse Oximeter Temp 97.1 F Temperature Source Temporal Artery Scan Pulse Oximetry 96 Oxygen Delivery Method Room Air Height 5 ft 6.5 in Weight 175 lb 6.4 oz BMI 27.9 Body Fat % 38.0 Body Fat Mass 66.6 Fat Free Mass 108.6 Visceral Fat Rating 7.0 Body Water % 44.3 Body Water Mass 77.6 Muscle Mass/Score 103.2 Basal Metabolic Rate/Score 1,501 Intake Visit Reasons: (OV) PO LSG 07/12/24 Allergies No Known Allergies Allergy (Verified 07/12/24 07:40) HPI Comments Details: 39-year-old female returns to the office today in follow-up. She is 7 days post sleeve gastrectomy with hiatal hernia repair performed on 07/12/2024. Tolerating 3 ready to drink Premier protein shakes, 4 oz mixed with 4 oz of almond milk. She has had approximately 50 oz of fluids daily. She has moved her bowels. [facility] Medical History Fatty liver Obesity Anxiety Depression Tuberculosis (~2007) Hypothyroid Asthma Surgical History History of esophagogastroduodenoscopy (EGD) (05/02/24) H/O wisdom tooth extraction Family History Mother Lung cancer Father No problems noted. Son No problems noted. Son No problems noted. Social History Household Members: Family Housing: House Do you presently have visiting nurse or other home services: No 75 years or older and lives alone: No Alcohol intake: current Alcohol intake frequency: holidays/special occasions only Patient Tobacco Use Status: Never used Tobacco e-Cigarette/Vaping Use: Never Used Physical Exam Vital Signs: Last Vital Signs Temp 97.1 F 07/19/24 13:27 Pulse 95 07/19/24 13:27 BP 118/67 07/19/24 13:27 Pulse Ox 96 07/19/24 13:27 Oxygen Delivery Method Room Air 07/19/24 13:27 BMI result Body Mass Index 27.9 GI Inspection: Yes incision (Clean, dry, intact.) Assessment & Plan Assessment & Plan (1) S/P laparoscopic sleeve gastrectomy: Code(s): Z98.84 - Bariatric surgery status Category: Surgical Plan: POD 7 s/p LSG with hiatal hernia repair on 07/12/[address] Coombs Weight loss prior to surgery was 33.1 pounds or 14.9 % TBWL. Original weight on 03/15/2024 was 221.6 pounds and op weight was 188.5 pounds. Be sure to text Dr Coombs exactly 1 week after surgery your weight from your home scale so he can adjust your meal plan. Continue meal plan until f/u judie Escobar in 2 weeks May shower, no submersion in bath for another week Continue abdominal binder with activity and exercise for the next 2 weeks. Exercise prior to surgery was treadmill and may resume No abdominal exercises for 6 weeks post operatively Will be emailed link to post op video for review Reminded of the pace of drinking, 2 mL per minute, 1 oz/15 min.
[2024-07-19 13:27] VITALS: BP 118/67; PULSE 95; TEMP 36.2; O2SAT 96; BMI 27.9
== END 2024-07-19 14:05 | disposition home or self-care (01) ==
PROVIDERS: PCP Family Medicine; Visit Provider Physician Assistant Surgical
DX: Z98.84 Bariatric surgery status (principal)
CPT/HCPCS: 99024

== ENCOUNTER → 2024-07-31 09:15 | Outpatient (AMB) | payer OTHER, SELFPAY ==
--- NOTE | 2024-07-31 09:00 | MHC.WMTHER ---
Intake Intake Visit Reasons: VIDEO PO 07/12/24 Allergies No Known Allergies Allergy (Verified 07/12/24 07:40) PFSH Medical History Fatty liver Obesity Anxiety Depression Tuberculosis (~2007) Hypothyroid Asthma Surgical History History of esophagogastroduodenoscopy (EGD) (05/02/24) H/O wisdom tooth extraction Family History Mother Lung cancer Father No problems noted. Son No problems noted. Son No problems noted. Social History Household Members: Family Housing: House Do you presently have visiting nurse or other home services: No 75 years or older and lives alone: No Alcohol intake: current Alcohol intake frequency: holidays/special occasions only Patient Tobacco Use Status: Never used Tobacco e-Cigarette/Vaping Use: Never Used Behavioral Health Assessment Weight Management Therapy Therapy Notes Details Subjective: PT reports she has been doing well with recovery and is losing weight faster than she thought. Hasn't stop Zoloft and is considering to get back to counseling. Objective: PT presents for a post-op visit. PT had bariatric surgery on 07/12/2024. Discussed functioning and routine. Processed challenges and some of her internal conflicts when she sees people and praise her for weight-loss. Discussed S/S and administered PHQ-9. Psychoeducation about responses around unhealthy relationship with food and restriction/overindulging patterns. Also reflected in how this process aids to re-wire brain, and continue with behavioral changes needed in the long-term for a successful weight-loss journey. Used CPT and supportive therapy interventions, constructive feedback provided, reinforced her commitment and positive attitude while empowering her to be assertive at manage social interactions. We also explored ways to change the focus of holidays on other things rather than food. Assessment/Response: Mental status: alert, oriented X3, PT reports she gets easily tired. Euthymic. Good functioning. Risk reported/identified: None. PHQ-9 scores: 3. None-low scores indicating no concerns around depression. PT was open, active and engaged. Responded well to interventions and requested a f/up after the holidays for check-in. Food/Weight/Diet Expectations of change Original weight on 03/15/2024 was 221.6 pounds and op weight was 188.5 pounds. Weight loss prior to surgery was 33.1 pounds or 14.9 % TBWL. 07/19/2024: 175Lbs Today's weight 07/31/24: 169Lbs. - Target weight: around 145Lbs Questionnaires PHQ-9 Over the last 2 weeks, how often have you been bothered by any of the following problems? 1. Little interest or pleasure in doing things: several days (Feeling bored.) 2. Feeling down, depressed, or hopeless: not at all 3. Trouble falling or staying asleep, or sleeping too much: not at all 4. Feeling tired or having little energy: several days 5. Poor appetite or overeating: not at all 6. Feeling bad about yourself - or that you are a failure or have let yourself or your family down: not at all 7. Trouble concentrating on things, such as reading the newspaper or watching television: several days 8. Moving or speaking so slowly that other people could have noticed. Or the opposite - being so fidgety or restless that you have been moving around a lot more than usual: not at all 9. Thoughts that you would be better off or of hurting yourself in some way: not at all Total score: 3 Depression Screening Interpretation: Negative Depression Screening Done: Yes 52607 - PHQ-9 Billing: Yes Source: Developed by Drs. Gonzales Stanley, Aria Whittaker, Siddharth Harrison and colleagues, with an educational mariano from [employer]. Assessment & Plan Assessment & Plan (1) Depression: Code(s): F32.A - Depression, unspecified Qualifiers: Active/Remission status: in remission of unspecified degree Plan PT will return 4-5 weeks, after the holidays for support with post-op process. Next kita: 09/04/2024 at 9am, Telehealth. Telehealth Telehealth Telehealth Platform: [employer] Location of provider rendering services: other Location of patient: address on file Patient Identification confirmed using: Name, : Yes Telehealth method: voice only Patient verbally consented to treatment: Yes Patient verbally consented to billing insurance company: Yes Patient informed of any privacy concerns related to visit: Yes Minutes spent on Phone/Video with Pt.: 45 Coding Level of Care Code Established Pt Tele Psytx 45 mins (31334) Patient Type Established Diagnoses Depression F32.A Active/Remission status: in remission of unspecified degree Additional Codes PHQ-9 - 37458 - PHQ-9 Billing: Yes ([id number]) Time Spent (min) 45
== END ==
PROVIDERS: PCP Family Medicine; Visit Provider Counselor Mental Health
DX: F32.A Depression, unspecified (principal)
CPT/HCPCS: 90834

== ENCOUNTER 2024-08-09 11:28 | Outpatient (AMB) | payer OTHER, SELFPAY ==
--- NOTE | 2024-08-09 11:30 | MHC.OFFVISWM ---
VS Expanded 08/09/24 11:36 BP 110/58 L Blood Pressure Location Rt brachial Blood Pressure Position Sitting Pulse 94 Pulse Source Pulse Oximeter Temp 97.9 F Temperature Source Temporal Artery Scan Pulse Oximetry 98 Oxygen Delivery Method Room Air Height 5 ft 6.5 in Weight 168 lb 3.2 oz BMI 26.7 Body Fat % 34.6 Body Fat Mass 58.2 Fat Free Mass 109.8 Visceral Fat Rating 6.0 Body Water % 46.7 Body Water Mass 78.4 Muscle Mass/Score 104.2 Basal Metabolic Rate/Score 1,500 Intake Visit Reasons: (OV) PO LSG 07/13/24 Allergies No Known Allergies Allergy (Verified 08/09/24 11:33) HPI Comments Details: This?a?39?yo female who is s/p LSG without hiatal hernia repair on?07/13/2024. Presents for 1 month post op visit. Weight today is 168.2 pounds, with a BMI of 26.7. There has been a 53.4 pound weight loss,(initial weight 221.6 pounds) since starting the program on 03/15/2024 reflecting a 24 % total body weight loss and a weight loss of 20.3 pounds since surgery (operative weight 188.5 pounds) reflecting a 10.7 % TBWL since surgery. No complaints of nausea, emesis, abdominal pain or reflux. Reports infrequent but normal bowel movements every 3 days and uses stool softeners regularly. Satisfied with her meal plan that was just recently given to her by Dr. Coombs. Present meal plan includes: Isopure infusion 1/2 scoop 8-10, 11-1 Premier protein RTD 6 oz mixed with almond milk 3-5 Pure protein bar 5-8 drinking 50 oz ? Exercise routine includes: Treadmill 220-250 fahad per day PFSH Medical History Fatty liver Obesity Anxiety Depression Tuberculosis (~2007) Hypothyroid Asthma Surgical History History of esophagogastroduodenoscopy (EGD) (05/02/24) H/O wisdom tooth extraction Family History Mother Lung cancer Father No problems noted. Son No problems noted. Son No problems noted. Social History Household Members: Family Housing: House Do you presently have visiting nurse or other home services: No 75 years or older and lives alone: No Alcohol intake: current Alcohol intake frequency: holidays/special occasions only Patient Tobacco Use Status: Never used Tobacco e-Cigarette/Vaping Use: Never Used Physical Exam Const General: healthy appearing and no acute distress Resp Effort & Inspection: normal respiratory effort Auscultation: clear to auscultation bilaterally Cardio Rate: regular rate Rhythm: regular rhythm GI Auscultation: normal bowel sounds Extrem General: Yes normal to inspection Assessment & Plan Assessment & Plan (1) S/P laparoscopic sleeve gastrectomy: Code(s): Z98.84 - Bariatric surgery status Category: Surgical Plan: Overall doing well. She is satisfied with her meal plan and will continue for another month. We will have her return in approximately 1 month. She continues to communicate with Dr. Coombs. Her meal plan was recently changed and she is satisfied with this for now. Return to clinic 1 month. Discussed adding 1 day of yoga and 6 days of cardio. Increasing calories burned during cardio to 350 per day. Additionally, starting multivitamin daily.
[2024-08-09 11:36] VITALS: BP 110/58; PULSE 94; TEMP 36.6; O2SAT 98; BMI 26.7
== END 2024-08-09 12:02 | disposition home or self-care (01) ==
PROVIDERS: PCP Family Medicine; Visit Provider Physician Assistant Surgical
DX: Z98.84 Bariatric surgery status (principal)
CPT/HCPCS: 99024

== ENCOUNTER 2024-09-11 13:00 | Outpatient (AMB) | payer OTHER, SELFPAY ==
--- NOTE | 2024-09-11 08:35 | A.OFFVIS_ITS ---
VS Expanded 09/11/24 08:36 Height 5 ft 6.5 in Weight 162 lb BMI 25.8 Body Fat % 33.8 Fat Free Mass 107.4 Visceral Fat Rating 7 Body Water % 48.4 Muscle Mass/Score 62 Basal Metabolic Rate/Score 1,420 Intake Visit Reasons: (TV) PO LSG 07/13/24 Anaesthesiologist Required: No Allergies No Known Allergies Allergy (Verified 08/09/24 11:33) Medication List - Last Reconciled 09/11/24 by VON Spence albuterol sulfate 90 mcg/actuation 2 puffs inhalation Q6H PRN levothyroxine 200 mcg PO QAM pantoprazole 40 mg PO DAILY sertraline (Zoloft) 100 mg PO DAILY sucralfate 10 mL PO BID HPI Comments Details: This?a?39?yo female who is s/p LSG without hiatal hernia repair on?07/13/2024. Presents for 2 month post op visit. Weight today is 162 pounds, with a BMI of 25.8. There has been a 59.6 pound weight loss,(initial weight 221.6 pounds) since starting the program on 03/15/2024 reflecting a 26.8 % total body weight loss and a weight loss of 26.5 pounds since surgery (operative weight 188.5 pounds) reflecting a 14 % TBWL since surgery. No complaints of nausea, emesis, abdominal pain or reflux. Reports infrequent but normal bowel movements every 3 days and uses stool softeners regularly. Wants to start food, also complaining of some constipation. Present meal plan includes: Premier protein RTD 6 oz mixed with 2 oz almond milk, 8-10, 11-1 Isopure infusion 1/2 scoop 2-5 Pure protein bar 5-8 drinking 40 oz ? Exercise routine includes: Treadmill 200 fahad 5-6 x per week, speed 3, incline 0-6 PFSH Medical History Fatty liver Obesity Anxiety Depression Tuberculosis (~2007) Hypothyroid Asthma Surgical History History of esophagogastroduodenoscopy (EGD) (05/02/24) H/O wisdom tooth extraction Family History Mother Lung cancer Father No problems noted. Son No problems noted. Son No problems noted. Social History Household Members: Family Housing: House Do you presently have visiting nurse or other home services: No 75 years or older and lives alone: No Alcohol intake: current Alcohol intake frequency: holidays/special occasions only Patient Tobacco Use Status: Never used Tobacco e-Cigarette/Vaping Use: Never Used Telehealth Telehealth Telehealth Platform: Telephone Location of provider rendering services: practice address Location of patient: address on file Patient Identification confirmed using: Name, : Yes Telehealth method: voice only Patient verbally consented to treatment: Yes Patient verbally consented to billing insurance company: Yes Patient informed of any privacy concerns related to visit: Yes Minutes spent on Phone/Video with Pt.: 20 Assessment & Plan Assessment & Plan (1) S/P laparoscopic sleeve gastrectomy: Code(s): Z98.84 - Bariatric surgery status Category: Surgical Plan: Patient wants to add food. We will change her meal plans slightly: Premier protein RTD 6 oz mixed with 2 oz almond milk, 8-10, 11-1 Pure protein bar 2-5 Meal at 18:00, 4 forks protein, 4 forks vegetables cooked Increase the speed of her treadmill to 3.4. Increase incline from 2-8 Return to clinic 1 month Encouraged to continue to text weekly with weights and with any questions or concerns. Add senna 2 tabs at HS Medications: New sennosides (senna) 17.2 mg (2 x 8.6 mg) PO BEDTIME PRN 90 tabs 2RF constipation
[2024-09-11 08:36] VITALS: BMI 25.8
== END 2024-09-11 13:19 | disposition home or self-care (01) ==
LOC: HO.HBS 13:18
PROVIDERS: PCP Family Medicine; Visit Provider Physician Assistant Surgical
DX: Z98.84 Bariatric surgery status (principal)
CPT/HCPCS: 99024

== ENCOUNTER → 2024-09-11 13:00 | Outpatient (BNVA) | payer OTHER, SELFPAY | PROVIDERS: PCP Family Medicine; Visit Provider Physician Assistant Surgical ==

== ENCOUNTER 2024-10-06 10:03 | Outpatient (AMB) | payer OTHER, SELFPAY ==
[2024-10-06 07:44] VITALS: BMI 24.7
--- NOTE | 2024-10-06 07:44 | MHC.OFFVISWM ---
VS Expanded 10/06/24 07:44 Height 5 ft 6.5 in Weight 155 lb 4 oz BMI 24.7 Intake Visit Reasons: (TV) PO LSG 07/13/24 Hand Wrapper Operator Required: No Allergies No Known Allergies Allergy (Verified 08/09/24 11:33) Medication List - Last Reconciled 10/06/24 by VON Spence albuterol sulfate 90 mcg/actuation 2 puffs inhalation Q6H PRN levothyroxine 200 mcg PO QAM pantoprazole 40 mg PO DAILY sennosides (senna) 17.2 mg (2 x 8.6 mg) PO BEDTIME PRN sertraline (Zoloft) 100 mg PO DAILY HPI Comments Details: This?a?39?yo female who is s/p LSG without hiatal hernia repair on?07/13/2024. Presents for 3 month post op visit. Weight today is 155.4 pounds, with a BMI of 24.7. There has been a 66.2 pound weight loss,(initial weight 221.6 pounds) since starting the program on 03/15/2024 reflecting a 29.8 % total body weight loss and a weight loss of 33.1 pounds since surgery (operative weight 188.5 pounds) reflecting a 17.5 % TBWL since surgery. No complaints of nausea, emesis, abdominal pain or reflux. Reports infrequent but normal bowel movements every 3 days and uses stool softeners regularly. She state things are going well. Taking darryl life MVI at night. Taking fahad + D in afternoon. Satisfied with her meal plan. Present meal plan includes: Premier protein RTD 6 oz mixed with 2 oz almond milk, 8-10, 11-1 Pure protein bar 2-5 Meal at 6 pm, 4 forks protein, 4 forks vegetables cooked Drinking 70-80 oz per day Exercise plan: home treadmill, increase the speed of her treadmill to 3.3-3.5. Increase incline from 2-7/8, 250 fahad per session, 5 x per week yoga on weekends PFSH Medical History Esophagitis determined by biopsy BMI 31.0-31.9,adult Obesity (BMI 30-39.9) Fatty liver Obesity Anxiety Depression Tuberculosis (~2007) Hypothyroid Asthma Surgical History History of esophagogastroduodenoscopy (EGD) (05/02/24) H/O wisdom tooth extraction Family History Mother Lung cancer Father No problems noted. Son No problems noted. Son No problems noted. Social History Household Members: Family Housing: House Do you presently have visiting nurse or other home services: No 75 years or older and lives alone: No Alcohol intake: current Alcohol intake frequency: holidays/special occasions only Patient Tobacco Use Status: Never used Tobacco e-Cigarette/Vaping Use: Never Used Physical Exam Vital Signs: BMI result Body Mass Index 24.7 Telehealth Telehealth Telehealth Platform: Telephone Location of provider rendering services: practice address Location of patient: other Patient Identification confirmed using: Name, : Yes Telehealth method: voice only Patient verbally consented to treatment: Yes Patient verbally consented to billing insurance company: Yes Patient informed of any privacy concerns related to visit: Yes Minutes spent on Phone/Video with Pt.: 12 Assessment & Plan Assessment & Plan (1) S/P laparoscopic sleeve gastrectomy: Code(s): Z98.84 - Bariatric surgery status Category: Surgical Plan: Patient is doing very well. She has achieved a healthy weight. She is following the meal plan and exercise plan. She will continue and continue to communicate biweekly her weight and with any questions or concerns. Follow-up in the office as scheduled.
== END 2024-10-06 10:16 | disposition home or self-care (01) ==
LOC: HO.HBS 10:03
PROVIDERS: PCP Family Medicine; Visit Provider Physician Assistant Surgical
DX: Z98.84 Bariatric surgery status (principal)
CPT/HCPCS: 99024

== ENCOUNTER → 2024-10-06 10:03 | Outpatient (BNVA) | payer OTHER, SELFPAY | PROVIDERS: PCP Family Medicine; Visit Provider Physician Assistant Surgical ==

== ENCOUNTER 2024-12-28 14:35 | Outpatient (AMB) | payer OTHER, SELFPAY ==
--- NOTE | 2024-12-28 14:38 | MHC.OFFVISWM ---
VS Expanded 12/28/24 14:46 BP 122/64 Blood Pressure Location Rt brachial Blood Pressure Position Sitting Pulse 82 Pulse Source Pulse Oximeter Temp 97.3 F Temperature Source Temporal Artery Scan Pulse Oximetry 97 Oxygen Delivery Method Room Air Height 5 ft 6.5 in Weight 147 lb 12.8 oz BMI 23.5 Body Fat % 24.8 Body Fat Mass 36.6 Fat Free Mass 111.2 Visceral Fat Rating 3.0 Body Water % 53.7 Body Water Mass 79.4 Muscle Mass/Score 105.4 Basal Metabolic Rate/Score 1,480 Intake Visit Reasons: (OV) PO LSG 07/13/24 Dispute Resolution Analyst Required: No Allergies No Known Allergies Allergy (Verified 12/28/24 14:42) Medication List - Last Reconciled 12/28/24 by VON Spence albuterol sulfate 90 mcg/actuation 2 puffs inhalation Q6H PRN levothyroxine 200 mcg PO QAM pantoprazole 40 mg PO DAILY sennosides (senna) 17.2 mg (2 x 8.6 mg) PO BEDTIME PRN sertraline (Zoloft) 100 mg PO DAILY HPI Comments Details: This?a?39?yo female who is s/p LSG without hiatal hernia repair on?07/13/2024. Presents for 6 month post op visit. Weight today is 147.8 pounds, with a BMI of 23.5. There has been a 73.8 pound weight loss,(initial weight 221.6 pounds) since starting the program on 03/15/2024 reflecting a 33.3 % total body weight loss and a weight loss of 40.7 pounds since surgery (operative weight 188.5 pounds) reflecting a 21.5 % TBWL since surgery. No complaints of nausea, emesis, abdominal pain or reflux. Reports infrequent but normal bowel movements every 3 days and uses stool softeners regularly. She state things are going well. Taking [employer] life MVI at night. Taking fahad + D in afternoon. Satisfied with her meal plan. Present meal plan includes: Premier protein RTD 6 oz mixed with 2 oz almond milk, 8-10, 11-1 Pure protein bar 2-5 Meal at 6 pm, 4 forks protein, 4 forks vegetables cooked Drinking 70-80 oz per day Exercise plan: home treadmill, none in the last 2 months yoga 2-3 x per week Any post op complications: none АННА: never DM: never HTN: never Hyperlipidemia: resolved GERD:?0-5 scale ??0 = no symptoms ??1 = symptoms noticeable but not bothersome 2 =symptoms bothersome but not daily ? 3 = symptoms bothersome and daily 4 = symptoms affect daily activities 5 = symptoms are incapacitating, unable to do daily activities ? How bad is the heartburn: 0 ? Heartburn while lying down: 0 ? Heartburn when standing up: 0 ? Heartburn after meals: 0 ? Does heartburn change your diet: 0 ? Does heartburn wake you up from sleep: 0 ? Do you have difficulty swallowin ? Do you have pain with swallowin ? If you take medicine for your reflux, does this affect your daily life: 0 Satisfaction with present condition - satisfied or not satisfied: satisfied [facility] Medical History Esophagitis determined by biopsy BMI 31.0-31.9,adult Obesity (BMI 30-39.9) Fatty liver Obesity Anxiety Depression Tuberculosis (~2007) Hypothyroid Asthma Surgical History (Updated 12/28/24 @ 14:42 by Yeimy Russ CMA) S/P laparoscopic sleeve gastrectomy History of esophagogastroduodenoscopy (EGD) (05/02/24) H/O wisdom tooth extraction Family History Mother Lung cancer Father No problems noted. Son No problems noted. Son No problems noted. Social History (Updated 12/28/24 @ 14:43 by Yeimy Russ CMA) Household Members: Family Housing: House Do you presently have visiting nurse or other home services: No 75 years or older and lives alone: No Alcohol intake: current Alcohol intake frequency: holidays/special occasions only Patient Tobacco Use Status: Never used Tobacco e-Cigarette/Vaping Use: Never Used Physical Exam Const General: cooperative and no acute distress Orientation/consciousness: patient oriented x3 Resp Effort & Inspection: normal respiratory effort Auscultation: clear to auscultation bilaterally Cardio Rate: regular rate Rhythm: regular rhythm GI Inspection: Yes normal to inspection and Yes incision (well healed) Palpation (GI): Soft to palpation and no masses Neuro General: patient oriented x3 Assessment & Plan Assessment & Plan (1) S/P laparoscopic sleeve gastrectomy: Code(s): Z98.84 - Bariatric surgery status Category: Surgical Plan: Patient is doing well and has achieved a healthy weight. She is committed to a healthy lifestyle. Encouraged to return to using her treadmill at home or join a gym to do weight-bearing exercises. She continues yoga twice weekly. She will continue her meal plan. Continue multivitamin. Discussed getting labs done which she will do. Return to clinic 3 months. Orders: Orders Insulin Today E03.1 - Congenital hypothyroidism without goiter, E78.00 - Pure hypercholesterolemia, unspecified, F41.9 - Anxiety disorder, unspecified, Z98.84 - Bariatric surgery status IRON PROFILE Today E03.1 - Congenital hypothyroidism without goiter, E78.00 - Pure hypercholesterolemia, unspecified, F41.9 - Anxiety disorder, unspecified, Z98.84 - Bariatric surgery status Comprehensive Met. Panel Today E03.1 - Congenital hypothyroidism without goiter, E78.00 - Pure hypercholesterolemia, unspecified, F41.9 - Anxiety disorder, unspecified, Z98.84 - Bariatric surgery status Zinc Today E03.1 - Congenital hypothyroidism without goiter, E78.00 - Pure hypercholesterolemia, unspecified, F41.9 - Anxiety disorder, unspecified, Z98.84 - Bariatric surgery status C Reactive Protein Today E03.1 - Congenital hypothyroidism without goiter, E78.00 - Pure hypercholesterolemia, unspecified, F41.9 - Anxiety disorder, unspecified, Z98.84 - Bariatric surgery status Vitamin B1 Today E03.1 - Congenital hypothyroidism without goiter, E78.00 - Pure hypercholesterolemia, unspecified, F41.9 - Anxiety disorder, unspecified, Z98.84 - Bariatric surgery status Vitamin A Today E03.1 - Congenital hypothyroidism without goiter, E78.00 - Pure hypercholesterolemia, unspecified, F41.9 - Anxiety disorder, unspecified, Z98.84 - Bariatric surgery status TSH reflex Free T4 Today E03.1 - Congenital hypothyroidism without goiter, E78.00 - Pure hypercholesterolemia, unspecified, F41.9 - Anxiety disorder, unspecified, Z98.84 - Bariatric surgery status Hemoglobin A1c Today E03.1 - Congenital hypothyroidism without goiter, E78.00 - Pure hypercholesterolemia, unspecified, F41.9 - Anxiety disorder, unspecified, Z98.84 - Bariatric surgery status Complete Blood Count Auto Diff Today E03.1 - Congenital hypothyroidism without goiter, E78.00 - Pure hypercholesterolemia, unspecified, F41.9 - Anxiety disorder, unspecified, Z98.84 - Bariatric surgery status Lipid Panel Today E03.1 - Congenital hypothyroidism without goiter, E78.00 - Pure hypercholesterolemia, unspecified, F41.9 - Anxiety disorder, unspecified, Z98.84 - Bariatric surgery status Vitamin B12 and Folate Today E03.1 - Congenital hypothyroidism without goiter, E78.00 - Pure hypercholesterolemia, unspecified, F41.9 - Anxiety disorder, unspecified, Z98.84 - Bariatric surgery status Ferritin Today E03.1 - Congenital hypothyroidism without goiter, E78.00 - Pure hypercholesterolemia, unspecified, F41.9 - Anxiety disorder, unspecified, Z98.84 - Bariatric surgery status Vitamin D 25-OH Total Today E03.1 - Congenital hypothyroidism without goiter, E78.00 - Pure hypercholesterolemia, unspecified, F41.9 - Anxiety disorder, unspecified, Z98.84 - Bariatric surgery status
[2024-12-28 14:46] VITALS: BP 122/64; PULSE 82; TEMP 36.3; O2SAT 97; BMI 23.5
== END 2024-12-28 15:12 | disposition home or self-care (01) ==
LOC: HO.HBS 14:35
PROVIDERS: PCP Family Medicine; Visit Provider Physician Assistant Surgical
DX: Z71.3 Dietary counseling and surveillance (principal); Z98.84 Bariatric surgery status
CPT/HCPCS: 99213

== ENCOUNTER → 2024-12-28 14:35 | Outpatient (BNVA) | payer OTHER, SELFPAY | PROVIDERS: PCP Family Medicine; Visit Provider Physician Assistant Surgical ==

== ENCOUNTER 2025-01-09 08:47 | Outpatient (REF) | payer OTHER, SELFPAY ==
[2025-01-09 08:59] LABS: MANUAL DIFF FLAG NO
[2025-01-09 09:20] LABS: Basophils Percent Auto 0.7 % (0-2); Eosinophils Absolute Auto 0.1 X10*3/uL (0.0-0.4); Eosinophils Percent Auto 2.9 % (0-4); Hematocrit 40.1 % (37.0-47.0); Hemoglobin 13.2 g/dl (12.0-16.0); Imm Gran Abs Auto 0.01 X10*3/uL (0.00-0.03); Imm Gran Pct Auto 0.2 % (0.0-0.4); Lymphocytes Percent Auto 43.8 % (20-40); Mean Corpuscular HGB Conc 32.9 g/dl (31.0-35.0); Mean Corpuscular Hemoglobin 28.7 pg (27.0-33.0); Mean Corpuscular Volume 87.2 fL (80.0-98.0); Mean Platelet Volume 11.1 fL (9.4-12.3); Monocytes Absolute Auto 0.3 X10*3/uL (0.1-1.2); Monocytes Percent Auto 6.7 % (2-11); Neutrophils Absolute Auto 2.1 x10*3/uL (2.0-8.3); Neutrophils Percent Auto 45.7 % (45-73); Platelet Count 213 X10*3/uL (160-400); White Blood Count 4.5 X10*3/uL (4.8-10.8)
[2025-01-09 09:37] LABS: Estimated Average Glucose 97 mg/dL; Hemoglobin A1C 107.9202 umol/L; Total Hemoglobin (HGBA1C) 3520.4564 umol/L
[2025-01-09 10:13] LABS: Alanine Aminotransferase 85 U/L (0-31); Albumin Level 4.1 g/dL (3.5-5.0); Alkaline Phosphatase 115 U/L (39-117); Anion Gap 11 (12-20); Aspartate Amino Transferase 57 U/L (5-31); Bilirubin Total 0.7 mg/dL (0.0-1.0); Blood Urea Nitrogen 18 mg/dL (9-16); C Reactive Protein < 0.10 mg/dL (< or = 0.50); Calcium 9.3 mg/dL (8.4-10.2); Carbon Dioxide 25 mmol/L (22-29); Chloride 107 mmol/L (96-108); Cholesterol 170 mg/dL (<200); Estimated Glomerular Filt Rate > 60; Glucose Random 76 mg/dL (60-115); HDL Cholesterol 52 mg/dL (>40); Iron 115 mcg/dL (30-160); LDL Cholesterol Calculated 102 mg/dL (<100); Percent Iron Saturation 44 % (15-50); Sodium 139 mmol/L (135-145); Total Iron Binding Capacity 262 mcg/dL (228-428); Total Protein 6.9 g/dL (6.5-8.0); Triglycerides 84 mg/dL (<150); Unsaturated Iron Binding 147 ug/dL
[2025-01-09 10:18] LABS: Ferritin 206 ng/mL (10-250); TSH reflex Free T4 11.82 uIU/mL (0.32-4.0); Vitamin D 25-OH Total 47.9 ng/mL (>30)
[2025-01-09 10:40] LABS: Folate 13.9 ng/mL (> or = 4.0); Vitamin B12 1465 pg/mL (200-900)
[2025-01-09 10:53] LABS: Free T4 (Free Thyroxine) 1.07 ng/dL (0.71-1.85); Insulin 3 uU/mL (2-29)
[2025-01-12 04:14] LABS: Zinc 77 mcg/dL (60-130)
[2025-01-12 21:42] LABS: Vitamin A 32 mcg/dL (38-98)
[2025-01-15 15:54] LABS: Vitamin B1 40 nmol/L (8-30)
== END 2025-01-09 08:48 | disposition home or self-care (01) ==
LOC: HO.LAB 08:47
PROVIDERS: PCP Family Medicine; Visit Provider Physician Assistant Surgical
DX: Z98.84 Bariatric surgery status (principal); E03.1 Congenital hypothyroidism without goiter; E78.00 Pure hypercholesterolemia, unspecified; F41.9 Anxiety disorder, unspecified; E03.9 Hypothyroidism, unspecified; Z13.1 Encounter for screening for diabetes mellitus
CPT/HCPCS: 36415; 80053; 80061; 82306; 82607; 82728; 82746; 83036; 83525; 83540; 84425; 84439; 84443; 84590; 84630; 85025; 86140

== ENCOUNTER 2025-01-23 07:41 | Outpatient (AMB) | payer OTHER, SELFPAY ==
--- NOTE | 2025-01-23 07:42 | MHC.OFFVIS ---
Vital Signs 01/23/25 07:43 Height 5 ft 6.5 in Weight 148 lb 2.41 oz BMI 23.6 BP 94/58 L Blood Pressure Location Lt brachial Position Sitting Pulse 81 Pulse Source Pulse Oximeter Pulse Oximetry (%) 96 Oxygen Delivery Method Room Air Intake Visit Reasons: Follow up on TSH results Intake Note: Patient present today for TSH results. Vegetable Washer Required: No Accompanied by: Self / Same As Patient Allergies No Known Allergies Allergy (Verified 01/23/25 07:46) Medication List - Last Reconciled 01/23/25 by Fatuma Velazco MD albuterol sulfate 90 mcg/actuation 2 puffs inhalation Q6H PRN levothyroxine 200 mcg PO QAM pantoprazole 40 mg PO DAILY sennosides (senna) 17.2 mg (2 x 8.6 mg) PO BEDTIME PRN sertraline (Zoloft) 100 mg PO DAILY vitamin A palmitate 3,000 mcg PO DAILY HPI Comments Details: 39-year-old female coming in today for fup of hypothyroidism. HPI from prior visit Congenital hypothyroidism diagnosed when she was born. PCP has been managing it. She thought to establish care with us due to some recent fluctuations in blood work and planning to get gastric sleeve surgery in sometime around July 2024. blood work from March 2024 showed TSH of 7.78 which is elevated and free T4 normal at 1.13. Aicha on levothyroxine 200 mcg Wednesday to Wednesday, now takes it 7 30 AM , then breakfast at 9 AM, but has become particular about this end of February. Prior to that she also thinks she missed some doses. 2-3 times a week maybe missed the pill. Patient currently denies heat or cold intolerance, diarrhea or constipation, hair loss, palpitation, anxiety, weight changes, mood changes, low energy, changes in appearance of eyes or vision changes, tremors, increased diaphoresis or dry skin. ? Patient denies any difficulty swallowing, pain on swallowing or voice changes or difficulty breathing. Patient denies any history of childhood neck radiation. Denies having ever used lithium, amiodarone or biotin supplements. Patient denies any family history of thyroid cancer or thyroid disease. 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 Physical exam General: sitting comfortably in no acute distress HEENT: normocephalic/atraumatic, moist oral mucosa Neck: supple, symmetrical , no dorsocervical or supraclavicular fat pads Cardiac: normal heart sounds Pulm: normal breath sounds B/L, no added breath sounds Abd: not distended, no tenderness Extremities: no edema, no signs of myxedema Laboratory Tests 03/24/24 06/07/24 07/04/24 09:26 09:30 Unknown Hgb Hct 25-OH Vitamin D Total 24.5 L TSH 7.78 H 0.80 0.59 Free T4 1.13 1.55 01/09/25 08:58 Hgb 13.2 Hct 40.1 25-OH Vitamin D Total 47.9 TSH 11.82 H Free T4 1.07 PFSH Medical History Esophagitis determined by biopsy BMI 31.0-31.9,adult Obesity (BMI 30-39.9) Fatty liver Obesity Anxiety Depression Tuberculosis (~2007) Hypothyroid Asthma Surgical History (Updated 12/28/24 @ 14:42 by Yeimy Russ CMA) S/P laparoscopic sleeve gastrectomy History of esophagogastroduodenoscopy (EGD) (05/02/24) H/O wisdom tooth extraction Family History Mother Lung cancer Father No problems noted. Son No problems noted. Son No problems noted. Social History (Updated 12/28/24 @ 14:43 by Yeimy Russ CMA) Household Members: Family Housing: House Do you presently have visiting nurse or other home services: No 75 years or older and lives alone: No Alcohol intake: current Alcohol intake frequency: holidays/special occasions only Patient Tobacco Use Status: Never used Tobacco e-Cigarette/Vaping Use: Never Used Physical Exam Vital Signs: Last Vital Signs Pulse 81 01/23/25 07:43 BP 94/58 L 01/23/25 07:43 Pulse Ox 96 01/23/25 07:43 Oxygen Delivery Method Room Air 01/23/25 07:43 BMI result Body Mass Index 23.6 Assessment & Plan Assessment & Plan (1) Hypothyroid: Code(s): E03.9 - Hypothyroidism, unspecified Category: Medical Qualifiers: Hypothyroidism type: congenital without goiter Qualified Code(s): E03.1 - Congenital hypothyroidism without goiter Plan: Patient with history of congenital hypothyroidism who has been on levothyroxine 200 mcg daily for many years. Most recently status post laparoscopic sleeve gastrectomy 07/13/2024, she has lost around 70 lb of weight since she has started working with weight management last summer. Most recent blood work done in December 2024 shows elevated TSH of 11.82, free T4 normal at 1.07. Likely absorption of levothyroxine as affected after the surgery, as patient promises good adherence to the medication and appropriate administration. I did emphasize to her importance of taking other vitamin and calcium pills at least 4 hours after levothyroxine administration. I am at this time we will go up on the dose of levothyroxine, however if her TSH continues to remain elevated, we might have to switch her to capsule are Tirosint for better absorption. Plan: -increase levothyroxine to 225 mcg daily (200+ 25 mcg tablet daily) -ordered TSH, free T4 to be done in 6-8 weeks -follow up in 3 months Plan I spent 30 minutes in reviewing the record, seeing the patient and documenting in the medical record. Orders: Orders Thyroid Stimulating Hormone 8 Weeks E03.1 - Congenital hypothyroidism without goiter Free T4 (Free Thyroxine) 8 Weeks E03.1 - Congenital hypothyroidism without goiter Medications: New levothyroxine Take with levothyroxine 200 mcg tablet daily 25 mcg PO DAILY 90 tabs 2RF Changed From levothyroxine 200 mcg PO QAM To levothyroxine Take with 25 mcg tablet daily 200 mcg PO QAM 90 tabs 2RF Patient Instructions: Increase levothyroxine to 225 mcg daily (200 plus 25 mcg tablet) Do blood work in 6 to 8 weeks , we will reach out with results Follow up in 3 months Coding Level of Care Code Est Pt Level 4 (06050) Diagnoses Congenital hypothyroidism without goiter E03.1 Hypothyroidism type: congenital without goiter Time Spent (min) 30
[2025-01-23 07:43] VITALS: BP 94/58; PULSE 81; O2SAT 96; BMI 23.6
== END 2025-01-23 08:01 | disposition home or self-care (01) ==
LOC: HO.ENCR 07:41
PROVIDERS: PCP Family Medicine; Visit Provider Student in an Organized Health Care Education/Training Program
DX: E03.1 Congenital hypothyroidism without goiter (principal)
CPT/HCPCS: 99214

== ENCOUNTER 2025-04-12 09:30 | Outpatient (AMB) | payer OTHER, SELFPAY ==
--- NOTE | 2025-04-12 08:10 | A.OFFVIS_ITS ---
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 Presents for 9 month post op visit. Weight today is 141.1 pounds, with a BMI of 22.4. There has been a 80.5 pound weight loss,(initial weight 221.6 pounds) since starting the program on 03/15/2024 reflecting a 36.3 % total body weight loss and a weight loss of 47.4 pounds since surgery (operative weight 188.5 pounds) reflecting a 25.1 % TBWL since surgery. No complaints of nausea, emesis, abdominal pain or reflux. Reports infrequent but normal bowel movements every 3 days and uses stool softeners regularly. She state things are going well. Taking darryl life MVI at night. Taking fahad + D in afternoon. Satisfied with her meal plan. She just got back from 6 weeks in [facility]. She is now back and back on track. Wants to change to IQ bar 12 gm protein each. Present meal plan includes: Premier protein RTD 6 oz mixed with 2 oz almond milk, 8-10, 11-1 Pure protein bar 2-5 Meal at 6 pm, 4 forks protein, 4 forks vegetables cooked Drinking 70-80 oz per day Exercise plan: home treadmill, yoga 2-3 x per week [facility] Medical History Esophagitis determined by biopsy BMI 31.0-31.9,adult Obesity (BMI 30-39.9) Fatty liver Obesity Anxiety Depression Tuberculosis (~2007) Hypothyroid Asthma Surgical History S/P laparoscopic sleeve gastrectomy History of esophagogastroduodenoscopy (EGD) (05/02/24) H/O wisdom tooth extraction Family History Mother Lung cancer Father No problems noted. Son No problems noted. Son No problems noted. Social History Household Members: Family Housing: House Do you presently have visiting nurse or other home services: No 75 years or older and lives alone: No Alcohol intake: current Alcohol intake frequency: holidays/special occasions only Patient Tobacco Use Status: Never used Tobacco e-Cigarette/Vaping Use: Never Used Telehealth Telehealth Telehealth Platform: Telephone Location of provider rendering services: practice address Location of patient: address on file Patient Identification confirmed using: Name, : Yes Telehealth method: voice only Patient verbally consented to treatment: Yes Patient verbally consented to billing insurance company: Yes Patient informed of any privacy concerns related to visit: Yes Minutes spent on Phone/Video with Pt.: 15 Assessment & Plan Assessment & Plan (1) S/P laparoscopic sleeve gastrectomy: Code(s): Z98.84 - Bariatric surgery status Category: Surgical Plan: Premier protein RTD 6 oz mixed with 2 oz almond milk, 8-10, 11-1 IQ bar 2-5 Meal at 6 pm, 6 forks protein, 6 forks vegetables cooked Doing very well. Change meal plans slightly as above based upon her desire to change her protein bar. Encouraged to continue exercising and resume regular cardiovascular activity. She is considering joining [employer]. We will have her return to the office in late June for her 1 year follow-up. Check labs at that time. Text with any questions or concerns
[2025-04-12 08:11] VITALS: BMI 22.4
--- OUTSIDE RECORDS SUMMARY | 2025-04-12 10:56 | XMS_ITS | Clinical Summary ---
Author Organization [facility] Address [facility] [employer] [address] [address] Phone Care Team Providers Care Shoveler Name Role Phone Ofelia Ramirez CNP Primary Care Provide r Allergies Active Allergy Reactions Criticality Noted Date Comments Cat Hair Std Allergenic Ext 03/19/20 22 Medications albuterol 90 mcg/actuation inhalerIndications: Mild intermittent asthma without complication Inhale 2 puffs into the lungs every 6 (six) hours as needed for wheezing. 1 Inhaler 1 0 Active sertraline (ZOLOFT) 100 MG tabletIndications:M ajor depression, recurrent, full remission TAKE 1 TABLET BY MOUTH EVERY DAY 90 tablet 1 5 Active levothyroxine (SYNTHROID, LEVOTHROID) 200 MCG tabletIndications:C ongenital hypothyroidism TAKE 1 TABLET BY MOUTH EVERY DAY IN THE MORNING 90 tablet 5 Active Active Problems Problem Noted Date Diagnosed Date S/P laparoscopic sleeve gastrectomy 09/14/2024 Overview (09/14/2024): 06/2024 [facility] Drooping eyelid, left 06/23/2023 Assessment & Plan (06/29/2023 1:38 PM EST): Resolved; eye structures and movement normal. Remains unknown why this occurred. Assessment & Plan (06/23/2023 4:12 PM EDT): No evidence of oculomotor nor facial nerve involvement. Recommend she see an career resource specialist, we will work on trying to get her seen for this. Not sure if that light pink area just above eyelid relevant, due to patch recommend she take antiviral. Class 1 obesity due to exces s calories without serious comorbidity with body mass index (BMI) of 34.0 to 34.9 in adult 03/19/2022 Assessment & Plan (06/29/2023 1:38 PM EST): Be more active, healthy diet and avoid weight gain, reduce weight over time Assessment & Plan (03/19/2022 11:11 AM EDT): Continue with plan to reduce weight increase exercise - intensity and duration Elevated liver transaminase level 08/23/2015 Overview (08/15/2020): Fatty liver, mild steatosis by U/S NAFL (nonalcoholic fatty liver) 08/23/2015 Congenital hypothyroidism Assessment & Plan (06/29/2023 1:39 PM EST): Clinically euthyroid Assessment & Plan (03/19/2022 11:09 AM EDT): Has been more consistent with taking meds in past couple of months, will update lab today Major depression, recurrent, full remission Assessment & Plan (06/29/2023 1:39 PM EST): Stable on Sertraline Assessment & Plan (03/19/2022 11:08 AM EDT): Stable on current regimen of sertraline Intermittent asthma Assessment & Plan (06/29/2023 1:39 PM EST): Stable, no exacerbations Assessment & Plan (03/19/2022 11:09 AM EDT): Stable, rare use of albuterol. Resolved Problems Problem Noted Date Diagnosed Date Resolved Date Ingrown nail 09/29/2022 06/15/2023 Encounters Date Type Department Care Team Description 01/25/2025 Orders Only [address] [place] [address] Dallas Murillo MD 01/24/2025 Orders [place] [address] [place] [address] Dallas Murillo MD 01/12/2025 Orders Only [address] [place] [address] Dallas Murillo MD 01/10/2025 Orders Only [address] [place] [address] ProviderDallas MD from Last 3 Months Immunizations Immunization Administration Dates Next Due COVID-19 (Pre) Triny Vaccine, rS-Ad26, PF 11/05/2020 COVID-19 (Pre) Moderna Vaccine, mRNA, PF 07/03/2021 COVID-19 Pfizer Comirnaty Vaccine 12+ 06/29/2023 Hepatitis A, Adult 04/07/2002,01/07/1999 Hepatitis B Adult 08/25/1999,02/25/1999,01/07/19 99 Influenza Quadrivalent Prese rvative Free IM 06/29/2023,07/03/2021,08/15/2020,10/15 Pneumococcal conjugate PCV20 03/19/2022 Pneumococcal polysaccharide PPSV23 01/22/2014 Tdap 12/25/2013 Family History Medical History Relation Comments Depression Father Other Father Digestive proble ms No Known Problems Half-Sister Depression Mother Fibromyalgia Mother Lung cancer Mother with mets, found late stage Other Son 1 Adopted No Known Problems Son 2 Relation Status Comments Father Half-Sister Mother Son 1 Son 2 Social History Tobacco Use Types Packs/Day Years Used Date Smoking Tobacco: Never Smokeless Tobacco: Never Tobacco Cessation:Counseling Given: Not Answered Alcohol Use Standard Drinks/Week Comments Yes 0 (1 standard drink = 0.6 oz pur e alcohol) Child or Family Care Answer Date Record ed Do you have problems with on e of the following making it difficult for you to work, study, or receive health care? No 06/29/2023 Education Answer Date Recorded Are you interested in help w ith more adult education (for example, completing high school, GED, job training, learning the Latv[place] language, technical skills, or developing parenting skills)? No 06/29/2023 Are you concerned about learning? Not on file 06/29/2023 No 06/29/2023 Yes 06/29/2023 Food Answer Date Recorded Within the past 6 months we worried whether our food would run out before we got money to buy more. Never True 06/29/2023 Within the past 6 months the food we bought just didn't last and we didn't have enough money to get more. Never True Residential Stability Answer Date Recor ded What is your housing situation today? I have michael sosa 06/29/2023 How many times have you moved in the past 12 wed ths? One time 06/29/2023 Paying for Meds Answer Date Recorded Do you have trouble paying for medicines? No 06/29/2023 Paying Utility Bills Answer Date Record ed Do you have trouble paying your heating or elect ricity bill? No 06/29/2023 Transportation Answer Date Recorded Has the lack of transportati on kept you from medical appointments or from getting medications? No 06/29/2023 Unemployment Answer Date Recorded Are you currently unemployed or working on a part-time or temporary basis, and looking for work? No 06/29/2023 Digital Access Answer Date Recorded No 06/29/2023 Yes 06/29/2023 Do you have reliable internet access at home? Ye s 06/29/2023 Do you have a device (e.g., phone, tablet, computer) with a working camera? Yes 06/29/2023 Intimate Partner Violence Answer Date R ecorded Denied Basic Needs Not on file 07/05/2024 In the past 12 months have y ou been in a relationship with a person who hurts, threatens, or tries to control you? No 07/05/2024 Worried food would run out Not on file 07/05 In the past 12 months have y ou been in a relationship with a person who hurts, threatens, or tries to control you? No 07/05/2024 Comments Unknown Sex and Gender Information Value Date Recorded Sex Assigned at Female 08/14/2020 2:56 PM EST Legal Sex Female 2:02 PM EST Gender Identity Female 08/14/2020 2:56 PM EST Sexual Orientation Straight 08/14/2020 2: 56 PM EST Last Filed Vital Signs Vital Sign Reading Time Taken Comments Blood Pressure 104/68 06/29/2023 1:05 PM EST Pulse 103 06/29/2023 1:05 PM EST Temperature 36.8 C (98.2 F) 06/29/2023 1:05 PM EST Respiratory Rate - - Oxygen Saturation 97% 06/29/2023 1:05 PM EST Inhaled Oxygen Concentration - - Weight 96.8 kg (213 lb 6.4 oz) 06/29/2023 1:05 P M EST Height 168.7 cm (5' 6.4 ) 06/29/2023 1:05 PM EST Body Mass Index 34.03 06/29/2023 1:05 PM EST Plan of Treatment Health Maintenance Due Date Last Done Comments MAMMOGRAM 2023 Adult Td,Tdap Booster 12/26/2023 12/25/2013 COVID-19 VACCINE ( season) 2024 06/29/2023, 07/03/2021, 11/05/2020 DEPRESSION SCREENING 07/05/2025 07/05/2024 TSH LEVEL 01/09/2026 01/09/2025, 12/22, 06/29/2023, Additional history exists PAP SMEAR 03/19/2027 03/19/2022, 10/15/2015 SCREENING FOR DIABETES 01/10/2028 , 03/19/2022, 02/01/2018 HEPATITIS A VACCINES Completed 04/07/2002, 01/07/19 99 HEPATITIS C SCREENING Completed 02/28/2014 HIV ONE-TIME SCREENING (18-65 YEARS) Completed 02/28/2014 PNEUMOCOCCAL VACCINES (0-49 years) Completed 03/19/2022, 01/22/2014 SMOKING STATUS SCREENING (Once After 26 Yrs) Completed 06/29/2023 HIB VACCINES Aged Out No longer eligi ble based on patient's age to complete this topic MENINGOCOCCAL VACCINES (ACWY) Aged Out No longer eligible based on patient's age to complete this topic MENINGOCOCCAL VACCINES (B) Aged Out N o longer eligible based on patient's age to complete this topic Medical Devices Not on file Procedures Procedure Name Priority Date/Time Associated Diagnosis Comments TSH Routine 01/09/2025 12:21 PM EDT OUTSIDE GLUCOSE FASTING Routine 01/09/2025 PAP TEST Routine 03/19/2022 12:00 AM EDT OUTSIDE HIV Routine 02/28/2014 OUTSIDE HEPATITIS C VIRUS SCREENING Routine 02/28/2014 from Last 3 Months or Most Recently Relevant to Health Maintenance Results * TSH (01/09/2025 12:21 PM EDT) Historical Provider MD LAB BLOOD ORDERABLES Toya l Result * Outside Glucose,Fasting (01/09/2025) Glucose, fasting - External 75 65 - 99 mg/dL Historical Provider MD LAB BLOOD ORDERABLES Toya l Result * Pap Smear (03/19/2022 12:00 AM EDT) 03/19/2022 03/20/2022 9:1 1 AM EDT Narrative SEE NARRATIVE - 03/25/2022 9:06 AM EDT [address] [address] Orange Picker: Kandi Bryant MD [employer] Cytology Report FINAL DIAGNOSIS A. PAP SMEAR (SUREPATH) CE: SPECIMEN ADEQUACY: Satisfactory for evaluation; transformation zone present. INTERPRETATION: NEGATIVE FOR INTRAEPITHELIAL LESION OR MALIGNANCY. Electronically Signed Out By: JAVON Cullen(ASCP) The Pap test is a screening test primarily for squamous cancers and precursors and has associated false-negative and false-positive results. New technologies such as liquid-based preparations may decrease but will not eliminate all false-negative results. Regular sampling and follow-up of unexplained clinical signs and symptoms are recommended to minimize false negative results. PROCEDURES/ADDENDA HPV Testing (Requested) Ordered Date: 03/20/2022 A. PAP SMEAR (SUREPATH) CE: Human Papilloma Virus Test Negative for high-risk human papillomavirus types 16, 18, 45 and the Other high risk probe set (Includes 31, 33, 35, 39, 51, 52, 56, 58, 59, 66, 68) by [employer] Onclarity HR-HPV analysis. Clinical correlation is advised. This HPV test was performed at [facility], [address] [place] [address]. This test has been FDA approved for SurePath cervical cytology specimens. The accuracy and precision of this test for all other specimen sources has been verified in the Cytopathology Laboratory of the [facility] and has not been cleared or approved by the U.S. Food and Drug Administration. Clinical correlation is advised. 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 HMO Care Teams Shoveler Relationship Specialty Start Date End Date Ofelia Ramirez CNP [address] [place] [id number] [email or web address] PCP - General Family Medicine 08/15/20 Additional Source Comments The information contained in this document represents components of the legal health record. It is not the complete legal health record.[facility]
== END 2025-04-12 09:45 | disposition home or self-care (01) ==
LOC: HO.HBS 09:39
PROVIDERS: PCP Family Medicine; Visit Provider Physician Assistant Surgical
DX: Z71.3 Dietary counseling and surveillance (principal); Z90.3 Acquired absence of stomach [part of]; Z98.84 Bariatric surgery status
CPT/HCPCS: 98013